=== PATIENT | male | born 1970 | race Caucasian/White ===

== ENCOUNTER 2019-02-24 18:24 | Emergency (ER) | payer OTHER ==
[2019-02-24 18:50] VITALS: RESP 18
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
--- NOTE | 2019-02-24 20:01 | XR ---
EXAMINATION TYPE: XR chest 2V DATE OF EXAM: 02/24/2019 COMPARISON: NONE HISTORY: Chest pain TECHNIQUE: Frontal and lateral views of the chest are obtained. FINDINGS: Heart and mediastinum are normal. Lungs are clear. Diaphragm is normal. Bony thorax appear s normal. IMPRESSION: Normal chest
--- NOTE | 2019-02-24 20:01 | XR ---
EXAMINATION TYPE: XR hand limited LT DATE OF EXAM: 02/24/2019 COMPARISON: NONE HISTORY: Hand pain TECHNIQUE: 2 views FINDINGS: Metacarpals are intact. I see no fracture nor dislocation. There are no erosions. Joint [facility] [place] are fairly normal. IMPRESSION: Negative left hand exam.
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
[2019-02-24 20:30] VITALS: BP 144/80; PULSE 70; TEMP 98
== END 2019-02-24 20:29 | disposition home or self-care (01) ==
LOC: EC 18:24
DX: M54.2 Cervicalgia (principal); R07.89 Other chest pain; M79.645 Pain in left finger(s); V43.52XA Car driver injured in collision with other type car in traffic accident, initial encounter; W22.11XA Striking against or struck by driver side automobile airbag, initial encounter; Y92.410 Unspecified street and highway as the place of occurrence of the external cause
CPT/HCPCS: 70450; 71046; 72125; 99284

== ENCOUNTER 2023-05-27 12:29 | Emergency (ER) | payer BC, OTHER ==
[2023-05-27 12:36] VITALS: PULSE 55; RESP 20; TEMP 98.4
[2023-05-27] MEDS ORDERED: ONDANSETRON 4 MG/2 ML VIAL IVP STA (12:39)
[2023-05-27] MEDS ORDERED: KETOROLAC 15 MG/ML 1 ML VIAL IVP STA (12:39)
[2023-05-27] MEDS ORDERED: SODIUM CHLORIDE 0.9% 1,000 ML IV STA (12:39)
[2023-05-27] MEDS ORDERED: MORPHINE SULFATE 4 MG/ML SYRINGE IVP STA (12:39)
--- NOTE | 2023-05-27 12:51 | ED ---
Abdominal Pain HPI - General Chief Complaint: Abdominal Pain Stated Complaint: poss Kidney Stone-N/V Time Seen by Provider: 05/27/23 12:39 Source: patient, RN notes reviewed, old records reviewed Mode of arrival: ambulatory Limitations: no limitations - History of Present Illness Initial Comments: This is a 52-year-old male to the emergency department for evaluation today. Patient comes in for evaluation of abdominal pain believes he does have kidney stone severe right-sided flank pain with history of kidney stones. Patient believes she has a kidney stone currently. Positive nausea no vomiting of travel show sick contacts or fevers no trauma MD Complaint: abdominal pain, flank pain -: days(s) Location: diffuse Radiation: none Severity: severe Severity scale (1-10): 10 Consistency: constant Improves With: nothing Worsens With: nothing Associated Symptoms: nausea - Related Data Home Medications Medication Instructions Recorded Confirmed Ibuprofen [Motrin] 600 mg PO TID PRN 05/27/23 05/27/23 Ondansetron Odt [Zofran ODT] 4 mg PO Q8HR PRN 05/27/23 05/27/23 Previous Rx's Medication Instructions Recorded Acetaminophen Tab [Tylenol] 650 mg PO Q6HR PRN tab 05/30/23 Allergies Allergy/AdvReac Type Severity Reaction Status Date / Time No Known Allergies Allergy Verified 05/27/23 19:25 Review of Systems ROS Statement: Those systems with pertinent positive or pertinent negative responses have been documented in the HPI. ROS Other: All systems not noted in ROS Statement are negative. Past Medical History Past Medical History: No Reported History Additional Past Medical History / Comment(s): kidney stones History of Any Multi-Drug Resistant Organisms: None Reported Past Surgical History: No Surgical Hx Reported Past Psychological History: No Psychological Hx Reported Smoking Status: Never smoker Past Alcohol Use History: None Reported Past Drug Use History: None Reported General Exam Limitations: no limitations General appearance: alert, in no apparent distress, anxious Head exam: Present: atraumatic, normocephalic, normal inspection Eye exam: Present: normal appearance, PERRL, EOMI. Absent: scleral icterus, conjunctival injection, periorbital swelling ENT exam: Present: normal exam, mucous membranes moist Neck exam: Present: normal inspection. Absent: tenderness, meningismus, lymphadenopathy Respiratory exam: Present: normal lung sounds bilaterally. Absent: respiratory distress, wheezes, rales, rhonchi, stridor Cardiovascular Exam: Present: normal rhythm, bradycardia, normal heart sounds. Absent: systolic murmur, diastolic murmur, rubs, gallop, clicks GI/Abdominal exam: Present: soft, normal bowel sounds. Absent: distended, tend erness, guarding, rebound, rigid Extremities exam: Present: normal inspection, full ROM, normal capillary refill. Absent: tenderness, pedal edema, joint swelling, calf tenderness Back exam: Present: normal inspection Neurological exam: Present: alert, oriented X3, CN II-XII intact Psychiatric exam: Present: normal affect, normal mood Skin exam: Present: warm, dry, intact, normal color. Absent: rash Course Vital Signs 05/27/23 05/27/23 12:33 15:19 Temperature 98.4 F Pulse Rate 55 L Respiratory 20 Rate Blood Pressure 166/106 146/96 O2 Sat by Pulse 98 Oximetry - Reevaluation(s) Reevaluation #1: 05/27/23 13:13 Medical records reviewed Reevaluation #2: Patient symptoms are improved, pain is controlled/ Reevaluation #3: Patient informed results and questions answered 20 Reevaluation #4: 05/27/23 12:54 Was pt. sent in by a medical professional or institution (, PA, TRUCK SERVICE TECHNICIAN, urgent care, hospital, or assisted...) When possible be specific @ -no Did you speak to anyone other than the patient for history (EMS, parent, family, police, friend...)? What history was obtained from this source @ -no Did you review nursing and triage notes (agree or disagree)? Why? @ -agree Are old charts reviewed (outside hosp., previous admission, EMS record, old EKG, old radiological studies, urgent care reports/EKG's, assisted records)? Report findings @ -yes Differential Diagnosis (chest pain, altered mental status, abdominal pain women, abdominal pain men, vaginal bleeding, weakness, fever, dyspnea, syncope, headache, dizziness, GI bleed, back pain, seizure, CVA, palpatations, mental health, musculoskeletal)? @ -prior EKG interpreted by me (3pts min.). @ -no X-rays interpreted by me (1pt min.). @ -no CT interpreted by me (1pt min.). @ -yes positive for kidney stone U/S interpreted by me (1pt. min.). @ -no What testing was considered but not performed or refused? (CT, X-rays, U/S, labs)? Why? @ -none What meds were considered but not given or refused? Why? @ -none Did you discuss the management of the patient with other professionals (professionals i.e. Dr., PA, TRUCK SERVICE TECHNICIAN, lab, RT, psych nurse, healthcare social worker, auditor, teacher, sewage reticulation drafting officer, caseworker intake)? Give summary @ -no Was smoking cessation discussed for >3mins.? @ -no Was critical care preformed (if so, how long)? @ -no Were there social determinants of health that impacted care today? How? (Homelessness, low income, unemployed, alcoholism, drug addiction, transportation, low edu. Level, literacy, decrease access to med. care, detention, rehab)? @ -none Was there de-escalation of care discussed even if they declined (Discuss DNR or withdrawal of care, Hospice)? DNR status @ -no What co-morbidities impacted this encounter? (DM, HTN, Smoking, COPD, CAD, Cancer, CVA, ARF, Chemo, Hep., AIDS, mental health diagnosis, sleep apnea, morbid obesity)? @ -none Was patient admitted / discharged? Hospital course, mention meds given and route, prescriptions, significant lab abnormalities, going to OR and other pertinent info. @ - 52 male to the emergency department today with severe abdominal pain secondary to kidney stone right-sided kidney stone. Patient has adequate pain control currently and can be discharged home Discharge Undiagnosed new problem with uncertain prognosis? @ -no Drug Therapy requiring intensive monitoring for toxicity (Heparin, Nitro, Insulin, Cardizem)? @ -no Were any procedures done? @ -no Diagnosis/symptom? @ -Right ureteral kidney stone with abdominal pain Acute, or Chronic, or Acute on Chronic? @ -Acute Uncomplicated (without systemic symptoms) or Complicated (systemic symptoms)? @ -Complicated Side effects of treatment? @ -no Exacerbation, Progression, or Severe Exacerbation? @ -exacerbation Poses a threat to life or bodily function? How? (Chest pain, USA, OR, pneumonia, PE, COPD, DKA, ARF, appy, cholecystitis, CVA, Diverticulitis, Homicidal, Suicidal, threat to staff... and all critical care pts) @ -no Reevaluation #5: 05/27/23 13:13 Differential Abdominal Pain Men: Appendicitis, cholecystitis, diverticulosis, ischemic bowel, pancreatitis, hepatitis, UTI, gastroenteritis, AAA, incarcerated hernia, bowel obstruction, constipation, inflammatory bowel, hepatitis, peptic ulcer disease, splenic infarction, perforated viscus, testicular torsion, this is not meant to be an all-inclusive list Medical Decision Making - Medical Decision Making 52 male to the emergency department today with severe abdominal pain secondary to kidney stone right-sided kidney stone. Patient has adequate pain control currently and can be discharged home - Lab Data Result diagrams: 05/27/23 13:07 05/27/23 13:07 Lab Results 05/27/23 05/27/23 Range/Units 13:07 13:07 WBC 11.5 H (3.8-10.6) k/uL RBC 5.63 (4.30-5.90) m/uL Hgb 17.6 H (13.0-17.5) gm/dL Hct 49.8 (39.0-53.0) % MCV 88.5 (80.0-100.0) fL MCH 31.2 (25.0-35.0) pg MCHC 35.3 (31.0-37.0) g/dL RDW 12.5 (11.5-15.5) % Plt Count 247 (150-450) k/uL MPV 7.9 Neutrophils % 84 % Lymphocytes % 9 % Monocytes % 5 % Eosinophils % 1 % Basophils % 0 % Neutrophils # 9.6 H (1.3-7.7) k/uL Lymphocytes # 1.0 (1.0-4.8) k/uL Monocytes # 0.6 (0-1.0) k/uL Eosinophils # 0.1 (0-0.7) k/uL Basophils # 0.0 (0-0.2) k/uL Sodium 140 (137-145) mmol/L Potassium 4.0 (3.5-5.1) mmol/L Chloride 104 (98-107) mmol/L Carbon Dioxide 20 L (22-30) mmol/L Anion Gap 16 mmol/L BUN 14 (9-20) mg/dL Creatinine 1.22 (0.66-1.25) mg/dL Est GFR (CKD-EPI)AfAm 80 (>60 ml/min/1.73 sqM) Est GFR (CKD-EPI)NonAf 69 (>60 ml/min/1.73 sqM) Glucose 102 H (74-99) mg/dL Calcium 9.3 (8.4-10.2) mg/dL Total Bilirubin 0.9 (0.2-1.3) mg/dL AST 23 (17-59) U/L ALT 32 (4-49) U/L Alkaline Phosphatase 90 (38-126) U/L Total Protein 7.9 (6.3-8.2) g/dL Albumin 4.4 (3.5-5.0) g/dL Amylase 58 (30-110) U/L Lipase 138 (23-300) U/L - Radiology Data Radiology results: report reviewed (CT Of the abdomen and pelvis is positive for kidney stone), image reviewed Disposition Clinical Impression: Right ureteral calculus, Kidney stone, Kidney stone on right side, Abdominal pain Disposition: HOME SELF-CARE Condition: Good Instructions (If sedation given, give patient instructions): Kidney Stones (ED) Is patient prescribed a controlled substance at d/c from ED?: No Referrals: Michael Gong MD [Primary Care Provider] - 1-2 days Aly Howell MD [STAFF PHYSICIAN] - 1-2 days Time of Disposition: 14:50
[2023-05-27 13:09] LABS: Basophils % (A) 0 %; Eosinophils # (A) 0.1 k/uL (0-0.7); Eosinophils % (A) 1 %; HCT 49.8 % (39.0-53.0); HGB 17.6 gm/dL (13.0-17.5); Lymphocytes % (A) 9 %; MCH 31.2 pg (25.0-35.0); MCHC 35.3 g/dL (31.0-37.0); MCV 88.5 fL (80.0-100.0); Mean Platelet Volume 7.9; Monocytes # (A) 0.6 k/uL (0-1.0); Monocytes % (A) 5 %; Neutrophils # (A) 9.6 k/uL (1.3-7.7); Neutrophils % (A) 84 %; Platelet Count 247 k/uL (150-450); RBC 5.63 m/uL (4.30-5.90); RDW 12.5 % (11.5-15.5); WBC 11.5 k/uL (3.8-10.6)
--- NOTE | 2023-05-27 13:34 | CT ---
EXAMINATION TYPE: CT abdomen pelvis wo con CT DLP: 978.7 mGycm, Automated exposure control for dose reduction was used. DATE OF EXAM: 05/27/2023 1:25 PM COMPARISON: None CLINICAL INDICATION:Male, 52 years old with history of abdominal pain; right flank pain TECHNIQUE: Axial CT of the ;CT abdomen pelvis wo con;Sagittal and coronal reformats were created on a separate workstation. Contrast used: mL of , (none if empty) Oral contrast used: without Oral Contrast (none if empty) FINDINGS: LOWER CHEST: Unremarkable ABDOMEN LIVER: Unremarkable GALLBLADDER AND BILE DUCTS: Unremarkable. PANCREAS: Unremarkable. SPLEEN: Unremarkable. ADRENAL GLANDS: Left adrenal myelolipoma measuring 2.9 cm. KIDNEYS AND URETERS: Mild right hydronephrosis secondary obstructing 10 mm kyphosis at the ureteropel luther junction. Nonobstructing left renal calculus measuring 4 mm. Extensive edema around the right kid lily. PELVIS BLADDER: Unremarkable REPRODUCTIVE: Prostate is enlarged in size measuring 5.3 cm in transverse dimension. ABDOMEN & PELVIS STOMACH AND BOWEL: No evidence of bowel obstruction. Colonic diverticula. The appendix is normal. PERITONEUM/RETROPERITONEUM: No evidence of pneumoperitoneum or free fluid. VASCULATURE: No evidence of aortic aneurysm. MUSCULOSKELETAL: No acute osseous abnormalities. Mild disc degeneration changes are present throughou t the thoracolumbar spine. LYMPH NODES: No gross evidence for lymphadenopathy. SOFT TISSUE/ABDOMINAL WALL: Fat-containing left inguinal hernia. IMPRESSION: 1. Mild right hydronephrosis secondary obstructing 10 mm kyphosis at the ureteropelvic junction. Akira yceal rupture is not excluded given extensive edema around the right kidney. 2. Left nonobstructing calculus. 3. Prostatomegaly, correlate with serum PSA. 4. Colonic diverticula. 5. Left adrenal myolipoma.
[2023-05-27 13:47] LABS: ALT 32 U/L (4-49); AST 23 U/L (17-59); African American GFR (CKD) 80 (>60 ml/min/1.73 sqM); Albumin 4.4 g/dL (3.5-5.0); Alkaline Phosphatase 90 U/L (38-126); Amylase 58 U/L (30-110); Anion Gap 16 mmol/L; Blood Urea Nitrogen 14 mg/dL (9-20); Calcium 9.3 mg/dL (8.4-10.2); Carbon Dioxide 20 mmol/L (22-30); Chloride 104 mmol/L (98-107); Glucose 102 mg/dL (74-99); Lipase 138 U/L (23-300); Non-African American GFR(CKD) 69 (>60 ml/min/1.73 sqM); Sodium 140 mmol/L (137-145); Total Bilirubin 0.9 mg/dL (0.2-1.3); Total Protein 7.9 g/dL (6.3-8.2)
[2023-05-27] MEDS ORDERED: TAMSULOSIN 0.4 MG CAP.ER.24H PO STA (14:35)
[2023-05-27] MEDS ORDERED: ONDANSETRON 4 MG ODT STARTER PACK 2 TAB BTL PO STA (14:51)
[2023-05-27] MEDS ORDERED: HYDROmorphone 1 MG/ML 1 ML SYRINGE IVP STA (14:51)
[2023-05-27] MEDS ORDERED: ACET/COD 300 MG/30 MG STARTER PACK 6 TAB BTL PO STA (14:51)
[2023-05-27] MEDS ORDERED: IBUPROFEN 600 MG STARTER PACK 4 TAB BTL PO STA (14:51)
[2023-05-27 15:41] VITALS: BP 146/96
== END 2023-05-27 15:20 | disposition home or self-care (01) ==
LOC: EC 12:29
DX: K57.30 Diverticulosis of large intestine without perforation or abscess without bleeding (principal); N20.2 Calculus of kidney with calculus of ureter
CPT/HCPCS: 36415; 80053; 82150; 83690; 85025; 74176; 99285; 96374; 96375 ×3; 96361; J2270; J2405; J1170; J1885; S0119

== ENCOUNTER 2023-05-27 18:40 | Inpatient (IN) | payer BC ==
[2023-05-27] MEDS ORDERED: MORPHINE SULFATE 4 MG/ML SYRINGE IVP STA (19:04)
[2023-05-27] MEDS ORDERED: KETOROLAC 15 MG/ML 1 ML VIAL IVP STA (19:04)
[2023-05-27] MEDS ORDERED: ONDANSETRON 4 MG/2 ML VIAL IVP STA (19:04)
[2023-05-27] MEDS ORDERED: SODIUM CHLORIDE 0.9% 1,000 ML IV STA ×2 (19:04)
--- NOTE | 2023-05-27 19:05 | ED ---
Abdominal Pain HPI - General Chief Complaint: Abdominal Pain Stated Complaint: Abd Pain - revisit Time Seen by Provider: 05/27/23 18:46 Source: patient, RN notes reviewed, old records reviewed Mode of arrival: ambulatory Limitations: no limitations - History of Present Illness Initial Comments: This is a 52-year-old male to the ER for evaluation reevaluation of kidney stone right-sided flank pain radiation to groin difficulty with urination. Patient does have known kidney stone right-sided milliliters, patient states he was at home and the pain became severe again, control pain presented back to the emergency department with fell outpatient treatment MD Complaint: abdominal pain, flank pain -: hour(s) Location: RLQ, suprapubic Radiation: suprapubic Severity: moderate, severe Severity scale (1-10): 4 Quality: sharp Consistency: constant Improves With: nothing Worsens With: nothing Associated Symptoms: nausea - Related Data Home Medications Medication Instructions Recorded Confirmed Ibuprofen [Motrin] 600 mg PO TID PRN 05/27/23 05/27/23 Ondansetron Odt [Zofran ODT] 4 mg PO Q8HR PRN 05/27/23 05/27/23 Previous Rx's Medication Instructions Recorded Acetaminophen Tab [Tylenol] 650 mg PO Q6HR PRN tab 05/30/23 Allergies Allergy/AdvReac Type Severity Reaction Status Date / Time No Known Allergies Allergy Verified 05/27/23 19:25 Review of Systems ROS Statement: Those systems with pertinent positive or pertinent negative responses have been documented in the HPI. ROS Other: All systems not noted in ROS Statement are negative. Past Medical History Past Medical History: No Reported History Additional Past Medical History / Comment(s): kidney stones History of Any Multi-Drug Resistant Organisms: None Reported Past Surgical History: No Surgical Hx Reported Past Psychological History: No Psychological Hx Reported Smoking Status: Never smoker Past Alcohol Use History: None Reported Past Drug Use History: None Reported General Exam Limitations: no limitations General appearance: alert, in no apparent distress, anxious Head exam: Present: atraumatic, normocephalic, normal inspection Eye exam: Present: normal appearance, PERRL, EOMI. Absent: scleral icterus, conjunctival injection, periorbital swelling ENT exam: Present: normal exam, mucous membranes moist Neck exam: Present: normal inspection. Absent: tenderness, meningismus, lymphadenopathy Respiratory exam: Present: normal lung sounds bilaterally. Absent: respiratory distress, wheezes, rales, rhonchi, stridor Cardiovascular Exam: Present: regular rate, normal rhythm, normal heart sounds. Absent: systolic murmur, diastolic murmur, rubs, gallop, clicks GI/Abdominal exam: Present: soft, normal bowel sounds. Absent: distended, tenderness, guarding, rebound, rigid Extremities exam: Present: normal inspection, full ROM, normal capillary refill. Absent: tenderness, pedal edema, joint swelling, calf tenderness Back exam: Present: normal inspection Neurological exam: Present: alert, oriented X3, CN II-XII intact Psychiatric exam: Present: normal affect, normal mood Skin exam: Present: warm, dry, intact, normal color. Absent: rash Course Vital Signs 05/27/23 05/27/23 18:43 22:09 Temperature 98.4 F Pulse Rate 65 50 L Respiratory 18 18 Rate Blood Pressure 126/86 140/91 O2 Sat by Pulse 99 98 Oximetry - Reevaluation(s) Reevaluation #1: 05/27/23 20:31 Record is reviewed Reevaluation #2: 05/27/23 20:31 Patient's pain is mildly improved Reevaluation #3: 05/27/23 20:31 Patient informed results and questions answered Reevaluation #4: 05/27/23 20:31 Was pt. sent in by a medical professional or institution ([facility] Miranda, REGISTRAR ASSISTANT, urgent care, hospital, or long-term...) When possible be specific @ -no Did you speak to anyone other than the patient for history (EMS, parent, family, police, friend...)? What history was obtained from this source @ -no Did you review nursing and triage notes (agree or disagree)? Why? @ -agree Are old charts reviewed (outside hosp., previous admission, EMS record, old EKG, old radiological studies, urgent care reports/EKG's, long-term records)? Report findings @ -yes Differential Diagnosis (chest pain, altered mental status, abdominal pain women, abdominal pain men, vaginal bleeding, weakness, fever, dyspnea, syncope, headache, dizziness, GI bleed, back pain, seizure, CVA, palpatations, mental he alth, musculoskeletal)? @ -prior EKG interpreted by me (3pts min.). @ -no X-rays interpreted by me (1pt min.). @ -no CT interpreted by me (1pt min.). @ -no U/S interpreted by me (1pt. min.). @ -no What testing was considered but not performed or refused? (CT, X-rays, U/S, labs)? Why? @ -none What meds were considered but not given or refused? Why? @ -none Did you discuss the management of the patient with other professionals (professionals i.e. , PA, REGISTRAR ASSISTANT, lab, RT, psych nurse, child protective services social worker, him clerk, teacher, unemployment insurance hearing officer, skilled nursing case manager)? Give summary @ -no Was smoking cessation discussed for >3mins.? @ -no Was critical care preformed (if so, how long)? @ -no Were there social determinants of health that impacted care today? How? (Homelessness, low income, unemployed, alcoholism, drug addiction, transportation, low edu. Level, literacy, decrease access to med. care, usp, re hab)? @ -none Was there de-escalation of care discussed even if they declined (Discuss DNR or withdrawal of care, Hospice)? DNR status @ -no What co-morbidities impacted this encounter? (DM, HTN, Smoking, COPD, CAD, Cancer, CVA, ARF, Chemo, Hep., AIDS, mental health diagnosis, sleep apnea, morbid obesity)? @ -none Was patient admitted / discharged? Hospital course, mention meds given and route, prescriptions, significant lab abnormalities, going to OR and other pertinent info. @ - 52 male to the emergency department for evaluation of abdominal pain kidney stone pain severe. Patient be admitted for urology to evaluate Admitted Undiagnosed new problem with uncertain prognosis? @ -no Drug Therapy requiring intensive monitoring for toxicity (Heparin, Nitro, Insulin, Cardizem)? @ -no Were any procedures done? @ -no Diagnosis/symptom? @ -Kidney stone with uncontrolled pain, failed outpatient treatment Acute, or Chronic, or Acute on Chronic? @ -Acute Uncomplicated (without systemic symptoms) or Complicated (systemic symptoms)? @ -Complicated Side effects of treatment? @ -no Exacerbation, Progression, or Severe Exacerbation? @ -exacerbation Poses a threat to life or bodily function? How? (Chest pain, [place], [place], pneumonia, PE, COPD, DKA, ARF, appy, cholecystitis, CVA, Diverticulitis, Homicidal, Suicidal, threat to staff... and all critical care pts) @ -no Medical Decision Making - Medical Decision Making 52 male to the emergency department for evaluation of abdominal pain kidney stone pain severe. Patient be admitted for urology to evaluate - Lab Data Result diagrams: 05/29/23 05:03 05/29/23 05:03 Lab Results 05/27/23 05/27/23 Range/Units 19:34 19:36 WBC 10.7 H (3.8-10.6) k/uL RBC 5.27 (4.30-5.90) m/uL Hgb 16.1 (13.0-17.5) gm/dL Hct 46.7 (39.0-53.0) % MCV 88.6 (80.0-100.0) fL MCH 30.5 (25.0-35.0) pg MCHC 34.4 (31.0-37.0) g/dL RDW 12.5 (11.5-15.5) % Plt Count 230 (150-450) k/uL MPV 8.0 Neutrophils % 80 % Lymphocytes % 12 % Monocytes % 6 % Eosinophils % 1 % Basophils % 0 % Neutrophils # 8.6 H (1.3-7.7) k/uL Lymphocytes # 1.3 (1.0-4.8) k/uL Monocytes # 0.6 (0-1.0) k/uL Eosinophils # 0.1 (0-0.7) k/uL Basophils # 0.0 (0-0.2) k/uL Sodium 137 (137-145) mmol/L Potassium 3.6 (3.5-5.1) mmol/L Chloride 103 (98-107) mmol/L Carbon Dioxide 22 (22-30) mmol/L Anion Gap 12 mmol/L BUN 13 (9-20) mg/dL Creatinine 1.23 (0.66-1.25) mg/dL Est GFR (CKD-EPI)AfAm 79 (>60 ml/min/1.73 sqM) Est GFR (CKD-EPI)NonAf 68 (>60 ml/min/1.73 sqM) Glucose 90 (74-99) mg/dL Calcium 8.9 (8.4-10.2) mg/dL Total Bilirubin 0.9 (0.2-1.3) mg/dL AST 20 (17-59) U/L ALT 28 (4-49) U/L Alkaline Phosphatase 87 (38-126) U/L Total Protein 7.2 (6.3-8.2) g/dL Albumin 4.1 (3.5-5.0) g/dL Amylase 57 (30-110) U/L Lipase 337 H (23-300) U/L Disposition Clinical Impression: Right ureteral calculus, Kidney stone, Kidney stone on right side, Abdominal pain Disposition: ADMITTED IP TO THIS [facility] Condition: Good Is patient prescribed a controlled substance at d/c from ED?: No Time of Disposition: 19:30
[2023-05-27] MEDS ORDERED: NALOXONE 0.4 MG/ML 1 ML VIAL IV PRN (20:11)
[2023-05-27] MEDS ORDERED: ONDANSETRON 4 MG/2 ML VIAL IVP PRN (20:18)
[2023-05-27 20:24] LABS: Basophils % (A) 0 %; Eosinophils # (A) 0.1 k/uL (0-0.7); Eosinophils % (A) 1 %; HCT 46.7 % (39.0-53.0); HGB 16.1 gm/dL (13.0-17.5); Lymphocytes # (A) 1.3 k/uL (1.0-4.8); Lymphocytes % (A) 12 %; MCH 30.5 pg (25.0-35.0); MCHC 34.4 g/dL (31.0-37.0); MCV 88.6 fL (80.0-100.0); Monocytes # (A) 0.6 k/uL (0-1.0); Monocytes % (A) 6 %; Neutrophils # (A) 8.6 k/uL (1.3-7.7); Neutrophils % (A) 80 %; Platelet Count 230 k/uL (150-450); RBC 5.27 m/uL (4.30-5.90); RDW 12.5 % (11.5-15.5); WBC 10.7 k/uL (3.8-10.6)
[2023-05-27 20:37] LABS: ALT 28 U/L (4-49); AST 20 U/L (17-59); African American GFR (CKD) 79 (>60 ml/min/1.73 sqM); Albumin 4.1 g/dL (3.5-5.0); Alkaline Phosphatase 87 U/L (38-126); Amylase 57 U/L (30-110); Anion Gap 12 mmol/L; Blood Urea Nitrogen 13 mg/dL (9-20); Calcium 8.9 mg/dL (8.4-10.2); Carbon Dioxide 22 mmol/L (22-30); Chloride 103 mmol/L (98-107); Glucose 90 mg/dL (74-99); Lipase 337 U/L (23-300); Non-African American GFR(CKD) 68 (>60 ml/min/1.73 sqM); Potassium 3.6 mmol/L (3.5-5.1); Sodium 137 mmol/L (137-145); Total Bilirubin 0.9 mg/dL (0.2-1.3); Total Protein 7.2 g/dL (6.3-8.2)
[2023-05-27] MEDS: SODIUM CHLORIDE 0.9% 1,000 ML IV SCH ×2 (21:04→23:15)
[2023-05-27 22:51] LABS: Appearance,Urine Clear (Clear); Bilirubin,Urine Negative (Negative); Blood,Urine Negative (Negative); Color,Urine Colorless; Glucose,Urine (UA) Negative (Negative); Ketones,Urine Negative (Negative); Leukocyte Esterase,Urine Negative (Negative); Nitrite,Urine Negative (Negative); PH, Urine 5.5 (5.0-8.0); Protein,Urine Negative (Negative); Specific Gravity,Urine 1.017 (1.001-1.035); Urobilinogen,Urine <2.0 mg/dL (<2.0)
[2023-05-27] MEDS: MORPHINE SULFATE 4 MG/ML SYRINGE IV PRN (23:15)
--- NOTE | 2023-05-28 02:26 | P.HPIM ---
History of Present Illness H&P Date: 05/27/23 Patient is a 52-year-old male with a PMH of recurrent nephrolithiasis who presented to the emergency room with complaints of right flank pain with nausea and vomiting. Patient reports his pain started around midnight 05/27, gradually worsened to a 10 out of 10, right flank and radiating to the groin, with associated nausea and 2 episodes of nonbloody nonbilious emesis, without associated dysuria, fever, or chills. He was seen at the emergency room earlier today where a CT abdomen and pelvis revealed right-sided 10 mm stone at the UP junction with hydronephrosis as well as a 4 mm nonobstructing left renal calculus. He was initially sent home but states that his pain worsened which prompted him to return to the emergency room. Patient reported that his pain had improved significantly and was rated at a 3 out of 10 at the time of interview. Reports having had multiple bouts of nephrolithiasis in the past 20 years with most recently 4 years ago. Has never been evaluated by urology. Patient also denied experiencing cough, chest discomfort, shortness of breath. In the emergency room laboratory evaluation was remarkable for leukocytosis of 10.7, lipase 337, with coronavirus PCR positive. ED documentation reviewed and case discussed with ED provider. Review of systems: Pertinent positives and negatives as discussed in HPI, a complete review of systems was performed and all other systems are negative. Physical examination: Vital signs reviewed General: non toxic, no distress, appears at stated age, normal weight Derm: no unusual rashes/lesions, warm Head: atraumatic, normocephalic, symmetric Eyes: EOMI, no lid lag, anicteric sclera, pupils equal round reactive to light ENT: Nose and ears atraumatic Neck: No cervical lymphadenopathy, trachea midline, supple Mouth: no lip lesion, mucus membranes moist Cardiovascular: S1S2 reg, no murmur, positive dorsalis pedis pulse bilateral, no edema Lungs: CTA bilateral, no rhonchi, no rales, no accessory muscle use Abdominal: soft, mild right CVA tenderness, no guarding, minimal suprapubic tenderness Ext: muscle strength 5 out of 5 in all 4 extremities grossly, no gross muscle atrophy, no contractures, Neuro: CN II-XI grossly intact, no gross focal neuro deficits Psych: Alert, oriented, appropriate affect Assessment: Right-sided nephrolithiasis with hydronephrosis Coronavirus PCR positive, asymptomatic Elevated lipase, suspect due to nausea and vomiting secondary to nephrolithiasis Imaging: CT abdomen and pelvis revealed right-sided 10 mm stone at the UP junction with hydronephrosis as well as a 4 mm nonobstructing left renal calculus. Data Review: In the emergency room laboratory evaluation was remarkable for leukocytosis of 10.7, lipase 337, with coronavirus PCR positive. Plan: Continue with IV fluids with normal saline 130 mL/h Strain urine Urology consulted Antiemetics Pain control with morphine DVT prophylaxis: Lovenox Subq The patient is admitted with an anticipated greater than 2 midnight stay for evaluation of nephrolithiasis CODE STATUS: Full Code Discussed with: Patient Anticipated discharge place: Home Past Medical History Past Medical History: No Reported History Additional Past Medical History / Comment(s): kidney stones History of Any Multi-Drug Resistant Organisms: None Reported Past Surgical History: No Surgical Hx Reported Past Anesthesia/Blood Transfusion Reactions: No Reported Reaction Past Psychological History: No Psychological Hx Reported Smoking Status: Never smoker Past Alcohol Use History: None Reported Past Drug Use History: None Reported Medications and Allergies Home Medications Medication Instructions Recorded Confirmed Type Acetaminophen-Codeine 300-30mg 1 tab PO Q8H PRN 05/27/23 05/27/23 History [Tylenol w/codeine #3] Ibuprofen [Motrin] 600 mg PO TID PRN 05/27/23 05/27/23 History Ondansetron Odt [Zofran Odt] 4 mg PO Q8HR PRN 05/27/23 05/27/23 History Allergies Allergy/AdvReac Type Severity Reaction Status Date / Time No Known Allergies Allergy Verified 05/27/23 19:25 Physical Exam Vitals: Vital Signs Temp Pulse Pulse Resp BP BP Pulse Ox 05/27/23 23:00 98.2 F 46 L 16 148/96 98 05/27/23 22:09 50 L 18 140/91 98 05/27/23 18:43 98.4 F 65 18 126/86 99 Intake and Output 05/27/23 05/27/23 05/28/23 14:59 22:59 06:59 Other: Weight 111.13 kg Results CBC & Chem 7: 05/27/23 19:36 05/27/23 19:34 Labs: Abnormal Lab Results - Last 24 Hours (Table) 05/27/23 05/27/23 05/27/23 Range/Units 19:34 19:36 20:42 WBC 10.7 H (3.8-10.6) k/uL Neutrophils # 8.6 H (1.3-7.7) k/uL Lipase 337 H (23-300) U/L SARS-CoV-2 (PCR) Detected A (Not Detectd)
[2023-05-28] MEDS: MORPHINE SULFATE 4 MG/ML SYRINGE IV PRN ×3 (03:27→17:06)
[2023-05-28] MEDS: SODIUM CHLORIDE 0.9% 1,000 ML IV SCH ×3 (03:28→16:44)
--- NOTE | 2023-05-28 07:10 | XR ---
EXAMINATION TYPE: XR KUB DATE OF EXAM: 05/27/2023 COMPARISON: 05/27/2023 HISTORY: Hematuria TECHNIQUE: One view abdominal series FINDINGS: The osseous structures are intact. The bowel gas pattern is nonspecific. There is a calcification ad jacent to the right transverse process of L3. Calcifications in the pelvis are likely vascular. There is arthropathy of the hips.. IMPRESSION: 1. 8 mm calcification adjacent to the right transverse process3 compatible with ureteral calculus.
[2023-05-28] MEDS: ENOXAPARIN 40 MG/0.4 ML SYRINGE SQ SCH (09:02)
--- NOTE | 2023-05-28 16:58 | P.PN ---
Subjective Progress Note Date: 05/28/23 Hospital course: Patient is a very pleasant 52-year-old male with a past medical history of recurrent nephrolithiasis who presented to the emergency room with complaints of right flank pain with nausea and vomiting. He underwent full evaluation in the emergency department. Vital signs showing blood pressure 126/86, heart rate 65, respiratory rate 18, temp 98.4F, SpO2 99% on room air. Labs completed and reviewed. CBC showing mild leukocytosis with WBC count of 10.7. BMP unrem arkable. Liver profile unremarkable. Lipase slightly elevated at 337. Urinalysis was negative for blood, ketones, or infection. Covid PCR was positive. CT abdomen and pelvis completed earlier that day revealed mild right hydronephrosis secondary to obstructing 10 mm kyphosis at the ureteropelvic junction with calyceal rupture not excluded given extensive edema around the right kidney, left nonobstructive calculi, left adrenal myolipoma, and prostatomegaly. Patient was admitted under our services with consultation to urology. Urology evaluated, planning to take patient for URS with holmium laser, stone basketing and stent placement tomorrow morning. KUB revealing an 8 mm calcification adjacent to the right transverse process compatible with ureteral calculus Physical exam: Patient seen and fully evaluated at bedside this morning. He reports pain is currently being managed with current pain medication regimen and denies having any other needs. Patient denies any further episodes of nausea or vomiting. He remains asymptomatic to Covid 19 complaints. Vital signs reviewed and stable. General: Nontoxic, no distress and appears stated age. Derm: Skin warm and dry, normal coloration for ethnicity. Head: Atraumatic, normocephalic and symmetric. Eyes: EOMs intact, no lid lag, and anicteric sclera Mouth: no lip lesions, mucus membranes moist Cardiovascular: regular rate and rhythm with normal S1S2, no murmur, positive posterior tibial pulses bilaterally, and cap refill < 2 seconds. Lungs: Respirations even, regular, and unlabored on room air. Lungs CTA bilaterally, no rhonchi, no rales, no wheezing, and no accessory muscle usage. Abdominal: soft, nontender to palpation, no guarding, no appreciable organomegaly Ext: ROM intact. No gross muscle atrophy, no edema, no contractures Neuro: Speech clear, face symmetrical and CN II-XII grossly intact with no noted focal neuro deficits Psych: Alert and oriented to person, place, time, and situation. Appropriate and pleasant affect. Assessment and Plan of Care: Right-sided nephrolithiasis with hydronephrosis Coronavirus PCR positive, asymptomatic Elevated lipase, suspect due to nausea and vomiting secondary to nephrolithiasis -Urology following, planning to take patient for right URS with holmium laser, s tone basketing and stent placement tomorrow morning. -Continue gentle IV fluid hydration with 0.9% normal saline at 130 miles per hour. -Symptomatic care and pain management with Zofran 4 mg IVP every 8 hours as needed for nausea and vomiting and morphine 4 mg IVP every 4 hours as needed for pain. -DVT prophylaxis with Lovenox. -Strain urine for calculus Coronavirus PCR positive, patient asymptomatic at this time -Droplet plus contact precautions. -Symptomatic care and pain management as needed. Prostatomegaly, incidental finding on CT -Recommend outpatient follow-up including PSA Data reviewed: Reviewed KUB completed this morning, KUB revealing an 8 mm calcification adjacent to the right transverse process compatible with ureteral calculus. Vital signs reviewed. Blood pressure 137/83, heart rate 62, respiratory rate 19, temp 97.7F, SpO2 of 95% on room air. CODE STATUS: Full code DVT prophylaxis: Lovenox Anticipated discharge date: Clinical course to determine Anticipated discharge place: Home Patient was seen independently by Nurse Pracitioner. This document was prepared using [employer] dictation software. Please allow for errors in city detective, while rare they do occur. Rolf Beltran NP rendered care for this patient independently, reviewed the findings and plan as documented in the note above. I did not physically speak with or examine the patient on this date. Objective - Vital Signs Vital signs: Vital Signs Temp 98.2 F 05/27/23 23:00 Pulse 46 L 05/27/23 23:00 Resp 16 05/27/23 23:00 BP 148/96 05/27/23 23:00 Pulse Ox 98 05/27/23 23:00 FiO2 Intake & Output 05/27/23 05/28/23 05/28/23 18:59 06:59 18:59 Intake Total 600 Balance 600 Weight 111.13 kg 111.13 kg Intake: Intake, IV Titration 600 Amount Sodium Chloride 0.9% 1, 260 000 ml @ 130 mls/hr IV . [id number] [facility] Rx#:[id number] Sodium Chloride 0.9% 1, 340 000 ml @ 75 mls/hr IV . [id number] [facility] Rx#:[id number] Other: # Voids 2 - Labs CBC & Chem 7: 05/27/23 19:36 05/27/23 19:34 Labs: Abnormal Lab Results - Last 24 Hours (Table) 05/27/23 05/27/23 05/27/23 Range/Units 19:34 19:36 20:42 WBC 10.7 H (3.8-10.6) k/uL Neutrophils # 8.6 H (1.3-7.7) k/uL Lipase 337 H (23-300) U/L SARS-CoV-2 (PCR) Detected A (Not Detectd)
[2023-05-28] MEDS: ACETAMINOPHEN TAB 325 MG TAB PO PRN (22:05)
--- NOTE | 2023-05-28 22:23 | P.GSCN ---
History of Present Illness Consult date: 05/28/23 Reason for Consult: right ureteral stone History of present illness: This is a 52 yo male admitted to the hospital with intractable pain secondary to right sided urteral stone. He has had two ED presentation secondary to pain. in the ER her underwent a CT abdomen the showed evidence of with of 1 cm right sided proximal ureteral stone. He is been expierencing right sided flank pain associated with nausea/vomiting. Denies any dysuria, fever or chills. Does have hx of kidney stones in the past, but has no required any surgical intervention for his kidney stones Review of Systems - Constitutional Denies fever, Denies weight loss - Cardiovascular Denies chest pain, Denies shortness of breath - Gastrointestinal Reports abdominal pain, Reports nausea, Reports vomiting - Genitourinary Reports flank pain, Reports kidney stones, Denies dysuria - Hematologic/Lymphatic Denies easy bleeding, Denies easy bruising Past Medical History Past Medical History: No Reported History Additional Past Medical History / Comment(s): kidney stones History of Any Multi-Drug Resistant Organisms: None Reported Past Surgical History: No Surgical Hx Reported Past Anesthesia/Blood Transfusion Reactions: No Reported Reaction Past Psychological History: No Psychological Hx Reported Smoking Status: Never smoker Past Alcohol Use History: None Reported Past Drug Use History: None Reported Medications and Allergies Home Medications Medication Instructions Recorded Confirmed Type Acetaminophen-Codeine 300-30mg 1 tab PO Q8H PRN 05/27/23 05/27/23 History [Tylenol w/codeine #3] Ibuprofen [Motrin] 600 mg PO TID PRN 05/27/23 05/27/23 History Ondansetron Odt [Zofran Odt] 4 mg PO Q8HR PRN 05/27/23 05/27/23 History Allergies Allergy/AdvReac Type Severity Reaction Status Date / Time No Known Allergies Allergy Verified 05/27/23 19:25 Surgical - Exam Vital Signs Temp Pulse Resp BP Pulse Ox 98.4 F 65 18 126/86 99 05/27/23 18:43 05/27/23 18:43 05/27/23 18:43 05/27/23 18:43 05/27/23 18:43 - General no distress, moderate pain - Eyes normal ocular movement, no pale - ENT normal nares, normal mucosa - Respiratory normal expansion, normal respiratory effort - Abdomen Abdomen: soft, tender (right flank ) - Psychiatric oriented to time, oriented to person, oriented to place Results - Labs 05/27/23 19:36 05/27/23 19:34 - Imaging CT scan - abdomen: image reviewed (1 cm right sided proximal ureteral stone with hydronephrosis) Assessment and Plan Assessment: 52 yo male with 1 cm right sided proximal stone having intractable pain secondary to stone. discussed option of right sided URS with holmium laser and stent. Risk, benefit and rationale was discussed in details -OR for right sided URS with holmium laser stone basketting and stent placement
[2023-05-29] MEDS: SODIUM CHLORIDE 0.9% 1,000 ML IV SCH ×3 (00:30→20:29)
[2023-05-29 08:28] LABS: HCT 40.5 % (39.6-50.0); HGB 13.8 g/dL (13.0-17.0); MCH 30.1 pg (27.0-32.0); MCHC 34.1 g/dL (32.0-37.0); MCV 88.2 FL (80.0-97.0); NRBC Per 100 WBC 0 X 10*3/uL (0.00-0.01); Platelet Count 201 X 10*3/uL (140-440); RBC 4.59 X 10*6/uL (4.40-5.60); RDW 12.4 % (11.5-14.5); WBC 5.25 X 10*3/uL (4.50-10.00)
[2023-05-29] MEDS: ENOXAPARIN 40 MG/0.4 ML SYRINGE SQ SCH (08:42)
[2023-05-29 09:16] LABS: ALT 19 U/L (10-49); AST 9 U/L (14-35); Albumin 3.5 g/dL (3.8-4.9); Albumin/Globulin Ratio 1.52 Ratio (1.60-3.17); Alkaline Phosphatase 72 U/L (41-126); Blood Urea Nitrogen 8.7 mg/dL (9.0-27.0); Calcium 8.5 mg/dL (8.7-10.3); Carbon Dioxide 23.5 mmol/L (21.6-31.8); Chloride 108 mmol/L (96-109); Globulin 2.3 g/dL (1.6-3.3); Glucose 78 mg/dL (70-110); Magnesium 1.9 mg/dL (1.5-2.4); Potassium 3.7 mmol/L (3.5-5.5); Sodium 142 mmol/L (135-145); Total Bilirubin 0.5 mg/dL (0.3-1.2); Total Protein 5.8 g/dL (6.2-8.2)
[2023-05-29] MEDS: MORPHINE SULFATE 4 MG/ML SYRINGE IV PRN (11:04)
[2023-05-29] MEDS ORDERED: LIDOCAINE 1% INJ 10MG/ML (20 ML MDV) ONE (14:04)
[2023-05-29] MEDS ORDERED: PROPOFOL 10 MG/ML 20 ML VIAL IV ONE (14:04)
[2023-05-29] MEDS ORDERED: IV FLUID CONTINUATION 1,000 ML IV ONE (14:04)
[2023-05-29] MEDS ORDERED: KETOROLAC 30 MG/ML 1 ML VIAL ONE (14:04)
[2023-05-29] MEDS ORDERED: SUCCINYLCHOLINE CHLORIDE 200 MG/10 ML VIAL IV ONE (14:04)
[2023-05-29] MEDS ORDERED: fentaNYL (PF) 50 MCG/ML 2 ML AMP ONE (14:04)
[2023-05-29] MEDS ORDERED: MIDAZOLAM 2 MG/2 ML VIAL ONE (14:04)
[2023-05-29] MEDS ORDERED: DEXAMETHASONE SOD PHOSPHATE 10 MG/ML 1 ML VIAL ONE (14:04)
[2023-05-29] MEDS ORDERED: HYDROmorphone (PF) 1 MG/ML ONE (14:04)
[2023-05-29] MEDS ORDERED: GLYCOPYRROLATE 0.2 MG/ML 2 ML VIAL ONE (14:04)
[2023-05-29] MEDS ORDERED: ONDANSETRON 4 MG/2 ML VIAL ONE (14:04)
[2023-05-29] MEDS ORDERED: ROCURONIUM 10 MG/ML (5 ML VIAL) IV ONE (14:04)
--- NOTE | 2023-05-29 15:19 | P.PN ---
Subjective Progress Note Date: 05/29/23 Hospital course: Patient is a very pleasant 52-year-old male with a past medical history of recurrent nephrolithiasis who presented to the emergency room with complaints of right flank pain with nausea and vomiting. He underwent full evaluation in the emergency department. Vital signs showing blood pressure 126/86, heart rate 65, respiratory rate 18, temp 98.4F, SpO2 99% on room air. Labs completed and reviewed. CBC showing mild leukocytosis with WBC count of 10.7. BMP unrem arkable. Liver profile unremarkable. Lipase slightly elevated at 337. Urinalysis was negative for blood, ketones, or infection. Covid PCR was positive. CT abdomen and pelvis completed earlier that day revealed mild right hydronephrosis secondary to obstructing 10 mm kyphosis at the ureteropelvic junction with calyceal rupture not excluded given extensive edema around the right kidney, left nonobstructive calculi, left adrenal myolipoma, and prostatomegaly. Patient was admitted under our services with consultation to urology. KUB revealing an 8 mm calcification adjacent to the right transverse process compatible with ureteral calculus Urology evaluated, planning to take patient for URS with holmium laser, stone basketing and stent placement. Physical exam: Patient seen and fully evaluated at bedside this morning. He reports pain is currently exacerbated and reports feeling uncomfortable. At this time. Patient awaiting to go down for surgical procedure. He continues to deny having any signs/symptoms of respiratory infection or Covid infection. Vital signs reviewed and stable. General: Nontoxic, no distress and appears stated age. Derm: Skin warm and dry, normal coloration for ethnicity. Head: Atraumatic, normocephalic and symmetric. Eyes: EOMs intact, no lid lag, and anicteric sclera Mouth: no lip lesions, mucus membranes moist Cardiovascular: regular rate and rhythm with normal S1S2, no murmur, positive posterior tibial pulses bilaterally, and cap refill < 2 seconds. Lungs: Respirations even, regular, and unlabored on room air. Lungs CTA bilaterally, no rhonchi, no rales, no wheezing, and no accessory muscle usage. Abdominal: soft, nontender to palpation, no guarding, no appreciable organomegaly Ext: ROM intact. No gross muscle atrophy, no edema, no contractures Neuro: Speech clear, face symmetrical and CN II-XII grossly intact with no noted focal neuro deficits Psych: Alert and oriented to person, place, time, and situation. Appropriate and pleasant affect. Assessment and Plan of Care: Right-sided nephrolithiasis with hydronephrosis Coronavirus PCR positive, asymptomatic Elevated lipase, suspect due to nausea and vomiting secondary to nephrolithiasis -Urology following, planning to take patient for right URS with holmium laser, stone basketing and stent placement later today. -Continue gentle IV fluid hydration with 0.9% normal saline at 130 miles per hour. May discontinue after surgery is complete. -Symptomatic care and pain management with Zofran 4 mg IVP every 8 hours as needed for nausea and vomiting and morphine 4 mg IVP every 4 hours as needed for pain. -DVT prophylaxis with Lovenox. -Strain urine for calculus Coronavirus PCR positive, patient asymptomatic at this time -Droplet plus contact precautions. -Symptomatic care and pain management as needed. Prostatomegaly, incidental finding on CT -Recommend outpatient follow-up including PSA Asymptomatic bradycardia Data reviewed: CBC and BMP were unremarkable. Magnesium normal findings at 1.9. Vital signs reviewed. Blood pressure 139/83, heart rate 43, respiratory rate 18, temp 98.2F, SpO2 of 94% on room air. CODE STATUS: Full code DVT prophylaxis: Lovenox Anticipated discharge date: Clinical course to determine Anticipated discharge place: Home Patient was seen independently by Nurse Pracitioner. This document was prepared using [employer] dictation software. Please allow for errors in prime minister, while rare they do occur. Rolf Beltran NP rendered care for this patient independently, reviewed the findings and plan as documented in the note above. I did not physically speak with or examine the patient on this date. Objective - Vital Signs Vital signs: Vital Signs Temp 98.2 F 05/29/23 07:08 Pulse 43 L 05/29/23 07:08 Resp 18 05/29/23 07:08 BP 139/83 05/29/23 07:08 Pulse Ox 94 L 05/29/23 07:08 FiO2 Intake & Output 05/28/23 05/29/23 05/29/23 18:59 06:59 18:59 Intake Total 180 Balance 180 Intake: Oral 180 Other: # Voids 1 2 - Labs CBC & Chem 7: 05/29/23 05:03 05/29/23 05:03
--- NOTE | 2023-05-29 15:22 | P.OP ---
Date of Procedure: 05/29/23 Preoperative Diagnosis: Right ureteral stone Postoperative Diagnosis: Same Procedure(s) Performed: Cystoscopy, right ureteroscopy, holmium laser lithotripsy, stone basketing and stent insertion Implants: 6-[place] by 28 cm stent in the right ureter left on a string Anesthesia: JAKE Surgeon: Aly Howell Estimated Blood Loss (ml): 5 Pathology: other (right ureteral stone) Condition: stable Disposition: PACU Indications for Procedure: 52 yo male with 1 cm right sided proximal stone having intractable pain secondary to stone. discussed option of right sided URS with holmium laser and stent. Risk, benefit and rationale was discussed in details Operative Findings: Large right-sided proximal stone Description of Procedure: Patient brought to the operating room, general anesthesia was induced. He was prepped and draped in sterile fashion and placed in dorsal lithotomy position. Cystoscopy fitted with a 21-[place] sheath was inserted per urethra, cystoscopy was performed which showed no abnormality within the bladder. Attention was then carried to the right ureteral orifice, the right ureteral orifice was intubated with a sensor wire, the wire was advanced under fluoroscopy into the proximal ureter. Next a 1113 [place] access sheath was passed over the wire and into the proximal ureter, just distal to the stone. Next a flexible ureteroscope was inserted through the access sheath, using the holmium laser the stone was fragmented, sizable stone fragments were removed using the stone basket. Repeat ureteroscopy and renoscopy was performed which showed no sizable fragments or injury to the kidney or the ureter. Pullback ureteroscopy was performed which showed no injury to the ureter or any ureteral stones, as ureteroscope was withdrawn and a sensor wire was advanced through. Next a ureteral stent was passed over the wire, the proximal curl was visualized on fluoroscopy and the distal curl was was visualized using the cystoscope. The bladder was emptied at the end of the case. The string was taped to the patient penis. Patient tolerated the procedure was taken to recovery in stable condition
--- NOTE | 2023-05-29 15:54 | FL ---
EXAMINATION TYPE: FL guidance operating room DATE OF EXAM: 05/29/2023 HISTORY: Fluoroscopy time Total dose area product (DAP) in uGy*m?, mGy*cm? (or similar): 0.05389 IMPRESSION: 1. Fluoroscopy time.
[2023-05-29] MEDS ORDERED: fentaNYL (PF) 50 MCG/ML 2 ML AMP IV PRN (16:47)
[2023-05-29] MEDS ORDERED: MIDAZOLAM 2 MG/2 ML VIAL IV PRN (16:47)
[2023-05-29] MEDS ORDERED: DEXAMETHASONE SOD PHOSPHATE 4 MG/ML 1 ML VIAL IV ONE (16:47)
[2023-05-29] MEDS ORDERED: LIDOCAINE 1% (10MG/ML) FOR IV START INTRADERMA PRN (16:47)
[2023-05-29] MEDS ORDERED: LACTATED RINGERS 1,000 ML IV SCH (16:47)
[2023-05-29] MEDS ORDERED: HYDROmorphone 0.5 MG/0.5 ML SYRINGE IVP PRN (16:47)
[2023-05-29] MEDS ORDERED: ONDANSETRON 4 MG/2 ML VIAL IVP ONE (16:47)
[2023-05-29] MEDS: ACETAMINOPHEN TAB 325 MG TAB PO PRN (20:27)
[2023-05-29] MEDS ORDERED: METOPROLOL TARTRATE 25 MG TAB PO STA (21:15)
[2023-05-30] MEDS: SODIUM CHLORIDE 0.9% 1,000 ML IV SCH (00:31)
[2023-05-30 08:55] VITALS: RESP 17
--- NOTE | 2023-05-30 09:05 | P.PN ---
Subjective Progress Note Date: 05/30/23 Principal diagnosis: Right ureteral calculus The patient underwent ureteroscopic removal of his right ureteral calculus yesterday. He is feeling well this morning. He reports mild hematuria and was reassured that this is normal. Objective - Vital Signs Vital signs: Vital Signs Temp 98.4 F 05/30/23 07:08 Pulse 87 05/30/23 07:08 Resp 17 05/30/23 07:08 BP 138/86 05/30/23 07:08 Pulse Ox 95 05/30/23 07:08 FiO2 Intake & Output 05/29/23 05/30/23 05/30/23 18:59 06:59 18:59 Other: Voiding Method Toilet Toilet # Voids 6 3 - Constitutional General appearance: Present: average body habitus, no acute distress - Psychiatric Psychiatric: Present: A&O x's 3 - Labs CBC & Chem 7: 05/29/23 05:03 05/29/23 05:03 Labs: Abnormal Lab Results - Last 24 Hours (Table) 05/29/23 Range/Units 05:03 BUN 8.7 L (9.0-27.0) mg/dL BUN/Creatinine Ratio 8.70 L (12.00-20.00) Ratio Calcium 8.5 L (8.7-10.3) mg/dL AST 9 L (14-35) U/L Total Protein 5.8 L (6.2-8.2) g/dL Albumin 3.5 L (3.8-4.9) g/dL Albumin/Globulin Ratio 1.52 L (1.60-3.17) Ratio Assessment and Plan (1) Right ureteral calculus Current Visit: Yes Status: Acute Code(s): N20.1 - CALCULUS OF URETER SNOMED Code(s): 03147005 Plan: Patient is urologically stable for discharge. He will follow up with Dr. Howell 1-2 weeks for removal of his right ureteral stent.
--- NOTE | 2023-05-30 09:10 | P.CRDCN ---
History of Present Illness History of present illness: HISTORY OF PRESENT ILLNESS: This is a 52-year-old male with a past medical history significant for kidney stones and nicotine dependence (patient chews tobacco). Patient does not follow with a signal tester. We have been asked to see the patient in consultation for S VT. Patient examined at the bedside. Patient presented to the hospital with a chief complaint of right-sided flank pain and difficulty with urination. The patient states he knew he had a kidney stone but the pain persisted so he decided to come to the emergency room for further evaluation. He underwent cystoscopy, right ureteroscopy, laser lithotripsy and stone basketing with stent insertion yesterday with urology. Patient states he is feeling better this morning. The patient also had an episode of SVT yesterday evening. The patient denied having any palpitations at that time. He denied any chest pain or pressure. He denied any shortness of breath. The patient was also noted to have some bradycardia this morning with a heart rate in the 30s40s. At the time of examination, the patients heart rate is in the 50s to 60s. He was also found to be positive for Covid. The patient denies any signs or symptoms of Covid at this time. * EKG reveals sinus bradycardia with right bundle branch block. No signs of acute ischemia. Repeat EKG reveals SVT. * Laboratory data: WBC 5.25. Hemoglobin 13.8. Platelet count 201. Sodium 142. Potassium 3.7. Magnesium 1.9. Lactic acid 2.0. * Current home cardiac medications include none REVIEW OF SYSTEMS: At the time of my exam: CONSTITUTIONAL: Denies fever or chills. HEENT: Denies blurred vision, vision changes, or eye pain. Denies hemoptysis CARDIOVASCULAR: Denies chest pain. Denies orthopnea. Denies PND. Denies palpitations RESPIRATORY: Denies shortness of breath. GASTROINTESTINAL: Denies abdominal pain. Denies nausea or vomiting. HEMATOLOGIC: Denies bleeding disorders. GENITOURINARY: Denies any blood in urine. SKIN: Denies pruitis. Denies rash. PHYSICAL EXAM: VITAL SIGNS: Reviewed. GENERAL: Well-developed in no acute distress. HEENT: Head is normocephalic. Pupils are equal, round. Sclerae anicteric. Mucous membranes of the mouth are moist. Neck supple. No JVD or thyromegaly LUNGS: Respirations even and unlabored. Lungs essentially clear to auscultation bilaterally. HEART: Regular rate and rhythm. S1 and S2 heard. ABDOMEN: Soft. Nondistended. Nontender. EXTREMITIES: Normal range of motion. No clubbing or cyanosis. Peripheral pulses intact. No lower extremity edema NEUROLOGIC: Awake and alert. Oriented x 3. ASSESSMENT: Right flank pain with difficulty urinating Right ureteral stone, status post cystoscopy, right ureteroscopy, laser lithotripsy and stone basketing with stent insertion Paroxysmal SVT Sinus bradycardia with right bundle branch block Acute Covid 19, asymptomatic Nicotine dependence, patient chews tobacco PLAN: Obtain 2-D echo to assess cardiac structure and function Check TSH Continue telemetry monitoring Patients heart rate is currently in the 50s to 60s with a dip this morning into the 30s. He is asymptomatic. Episode of SVT may be related to Covid. Further recommendations pending patient course Nurse practitioner note has been reviewed by physician. Signing provider agrees with the documented findings, assessment, and plan of care. Past Medical History Past Medical History: No Reported History Additional Past Medical History / Comment(s): kidney stones History of Any Multi-Drug Resistant Organisms: None Reported Past Surgical History: No Surgical Hx Reported Past Anesthesia/Blood Transfusion Reactions: No Reported Reaction Past Psychological History: No Psychological Hx Reported Smoking Status: Never smoker Past Alcohol Use History: None Reported Past Drug Use History: None Reported Medications and Allergies Home Medications Medication Instructions Recorded Confirmed Type Acetaminophen-Codeine 300-30mg 1 tab PO Q8H PRN 05/27/23 05/27/23 History [Tylenol w/codeine #3] Ibuprofen [Motrin] 600 mg PO TID PRN 05/27/23 05/27/23 History Ondansetron Odt [Zofran Odt] 4 mg PO Q8HR PRN 05/27/23 05/27/23 History Allergies Allergy/AdvReac Type Severity Reaction Status Date / Time No Known Allergies Allergy Verified 05/27/23 19:25 Physical Exam Vitals: Vital Signs Temp Pulse Pulse Resp BP BP BP 05/30/23 07:08 98.4 F 87 17 138/86 05/30/23 00:26 98.9 F 64 18 132/83 05/29/23 21:20 84 134/93 05/29/23 21:05 99.2 F 140 H 17 140/89 12/19/23 19:45 140 H 05/29/23 19:41 154 H 96/79 05/29/23 19:16 98.3 F 140 H 20 140/89 05/29/23 18:00 48 L 156/98 05/29/23 17:45 39 L 155/92 05/29/23 17:30 48 L 171/105 05/29/23 17:15 40 L 149/94 05/29/23 17:00 39 L 173/96 05/29/23 16:45 37 L 152/91 05/29/23 16:30 49 L 168/100 05/29/23 16:15 47 L 164/98 05/29/23 15:58 97.7 F 50 L 16 154/102 05/29/23 13:35 98.2 F 50 L 18 161/96 05/29/23 09:14 50 L 143/79 Pulse Ox 05/30/23 07:08 95 05/30/23 00:26 95 05/29/23 21:20 94 L 05/29/23 21:05 93 L 05/29/23 19:45 05/29/23 19:41 96 05/29/23 19:16 98 05/29/23 18:00 05/29/23 17:45 05/29/23 17:30 05/29/23 17:15 05/29/23 17:00 95 05/29/23 16:45 05/29/23 16:30 05/29/23 16:15 05/29/23 15:58 95 05/29/23 13:35 99 05/29/23 09:14 97 Intake and Output 05/29/23 05/30/23 05/30/23 22:59 06:59 14:59 Other: Voiding Method Toilet # Voids 6 3 Results 05/29/23 05:03 05/29/23 05:03 Cardiac Enzymes 05/29/23 Range/Units 05:03 AST 9 L (14-35) U/L Comprehensive Metabolic Panel 05/29/23 Range/Units 05:03 Sodium 142 (135-145) mmol/L Potassium 3.7 (3.5-5.5) mmol/L Chloride 108 (96-109) mmol/L Carbon Dioxide 23.5 (21.6-31.8) mmol/L BUN 8.7 L (9.0-27.0) mg/dL Creatinine 1.0 (0.6-1.5) mg/dL Glucose 78 (70-110) mg/dL Calcium 8.5 L (8.7-10.3) mg/dL AST 9 L (14-35) U/L ALT 19 (10-49) U/L Alkaline Phosphatase 72 (41-126) U/L Total Protein 5.8 L (6.2-8.2) g/dL Albumin 3.5 L (3.8-4.9) g/dL Current Medications Generic Name Dose Route Start Last Admin Trade Name Freq PRN Reason Stop Dose Admin Acetaminophen 650 mg 05/28/23 21:41 05/29/23 20:27 Acetaminophen Tab 325 Mg Tab PO 650 mg Q6HR PRN Administration Fever and/ or Pain Enoxaparin Sodium 40 mg 05/28/23 09:00 05/29/23 08:42 Enoxaparin 40 Mg/0.4 Ml Syringe SQ Not Given DAILY [facility] Fentanyl Citrate 50 mcg 05/29/23 16:47 Fentanyl (Pf) 50 Mcg/Ml 2 Ml Amp IV 05/30/23 16:48 Q3M PRN Phase I - Pain Control Hydromorphone HCl 0.5 mg 05/29/23 16:47 Hydromorphone 0.5 Mg/0.5 Ml Syringe IVP 05/30/23 16:48 Q5M PRN Phase 1 or 2 - Pain Control Lidocaine HCl 0.1 ml 05/29/23 16:47 Lidocaine 1% (10mg/Ml) For Iv Start INTRADERMA PER PROTOCOL PRN IV Start Midazolam HCl 2 mg 05/29/23 16:47 Midazolam 2 Mg/2 Ml Vial IV 05/30/23 16:48 ONCE PRN Pre-Op Anxiety Morphine Sulfate 4 mg 05/27/23 19:04 05/29/23 11:04 Morphine Sulfate 4 Mg/Ml Syringe IV 4 mg Q4HR PRN Administration Severe Pain (Scale 7 to 10) Naloxone HCl 0.2 mg 05/27/23 20:11 Naloxone 0.4 Mg/Ml 1 Ml Vial IV Q2M PRN Opioid Reversal Ondansetron HCl 4 mg 05/27/23 20:18 Ondansetron 4 Mg/2 Ml Vial IVP Q8HR PRN Nausea And Vomiting Intake and Output 05/29/23 05/30/23 05/30/23 22:59 06:59 14:59 Other: Voiding Method Toilet # Voids 6 3 05/29/23 05:03 05/29/23 05:03
[2023-05-30] MEDS: ENOXAPARIN 40 MG/0.4 ML SYRINGE SQ SCH (09:53)
[2023-05-30 10:42] LABS: Magnesium 1.7 mg/dL (1.6-2.3)
--- NOTE | 2023-05-30 11:37 | P.DS ---
Providers Date of admission: 05/27/23 20:11 Expected date of discharge: 05/30/23 Attending physician: Pramod Torres MD Consults: 05/27/23 20:18 Consult Physician Routine Consulting Provider: Aly Howell Consult Reason/Comments: stone Do you want consulting provider notified?: Yes 05/29/23 21:15 Consult Physician Routine Consulting Provider: Rigo Hinson Consult Reason/Comments: NOS SVT Do you want consulting provider notified?: Yes, Notify in am Primary care physician: [facility] Course: Right-sided nephrolithiasis with hydronephrosis Coronavirus PCR positive, asymptomatic Elevated lipase, suspect due to nausea and vomiting secondary to nephrolithiasis Coronavirus PCR positive, patient asymptomatic at this time Prostatomegaly, incidental finding on CT Asymptomatic bradycardia Hospital course: Patient is a very pleasant 52-year-old male with a past medical history of recurrent nephrolithiasis who presented to the emergency room with complaints of right flank pain with nausea and vomiting. He underwent full evaluation in the emergency department. Vital signs showing blood pressure 126/86, heart rate 65, respiratory rate 18, temp 98.4F, SpO2 99% on room air. Labs completed and reviewed. CBC showing mild leukocytosis with WBC count of 10.7. BMP unremarkable. Liver profile unremarkable. Lipase slightly elevated at 337. Urinalysis was negative for blood, ketones, or infection. Covid PCR was positive. CT abdomen and pelvis completed earlier that day revealed mild right hydronephrosis secondary to obstructing 10 mm kyphosis at the ureteropelvic junction with calyceal rupture not excluded given extensive edema around the right kidney, left nonobstructive calculi, left adrenal myolipoma, and prostatomegaly. Patient was admitted under our services with consultation to urology. KUB revealing an 8 mm calcification adjacent to the right transverse process compatible with ureteral calculus Urology evaluated, took the patient for URS with holmium laser, stone basketing and stent placement. Pt did well following the procedure with reduced pain. He was discharge dhome with instructions to f/u with Urology in 1 week. I spent 40 minutes coordinating this discharge on 05/30 Gen: awake, alert HEENT: normocephalic, atraumatic, good hearing acuity, moist mucous membranes Resp: good air exchange, breathing comfortably with no accessory muscle use CVS: good distal perfusion x 4, GI: soft, NTTP, ND : no SPT, no CVAT, villa catheter not present MSK: no pitting edema, no clubbing Neuro: non-focal, moving all extremities Psych: cooperative, euthymic mood Patient Condition at Discharge: Good Plan - Discharge Summary New Discharge Prescriptions: New Acetaminophen Tab [Tylenol] 650 mg PO Q6HR PRN tab PRN Reason: Fever And/ Or Pain Continue Ondansetron Odt [Zofran ODT] 4 mg PO Q8HR PRN PRN Reason: Nausea And Vomiting Ibuprofen [Motrin] 600 mg PO TID PRN PRN Reason: Fever And/ Or Pain Discontinued Acetaminophen-Codeine 300-30mg [Tylenol w/codeine #3] 1 tab PO Q8H PRN PRN Reason: Pain Discharge Medication List Ibuprofen [Motrin] 600 mg PO TID PRN 05/27/23 [History] Ondansetron Odt [Zofran ODT] 4 mg PO Q8HR PRN 05/27/23 [History] Acetaminophen Tab [Tylenol] 650 mg PO Q6HR PRN tab 05/30/23 [Rx] Follow up Appointment(s)/Referral(s): Aly Howell MD [STAFF PHYSICIAN] - 1 Week (office will call with appointment time) Michael Gong MD [Primary Care Provider] - 1-2 days Activity/Diet/Wound Care/Special Instructions: Increase fluid intake It is normal to have blood in the urine Ureter stent was left on a string and taped to your penis, it will be removed during your office visit Discharge Disposition: HOME SELF-CARE
--- NOTE | 2023-05-30 13:10 | CA ---
Transthoracic Echo Report Name: Tyrese Churchill Age: 52 Gender: M : 1970 Exam Date: 05/30/2023 11:11 Exam Location: [facility] Ht (in): 77 Wt (lb): 245 Ordering Physician: Joselyn Segura Attending/Referring Phys: [id number], [employer] [employer] Specialist Digna Ramos, SANTOS Procedure CPT: Indications: LV function, SVT Cardiac Hx: Technical Quality: Good Contrast 1: Total Dose (mL): Contrast 2: Total Dose (mL): MEASUREMENTS (Male / Female) Normal Values 2D ECHO LV Diastolic Diameter PLAX 5.4 cm 4.2 - 5.9 / 3.9 - 5.3 cm LV Systolic Diameter PLAX 3.4 cm IVS Diastolic Thickness 1.4 cm 0.6 - 1.0 / 0.6 - 0.9 cm LVPW Diastolic Thickness 1.3 cm 0.6 - 1.0 / 0.6 - 0.9 cm LV Relative Wall Thickness 0.5 RV Internal Dim ED PLAX 4.0 cm LA Systolic Diameter LX 4.2 cm 3.0 - 4.0 / 2.7 - 3.8 cm LA Volume 98.5 cm??? 18 - 58 / 22 - 52 cm??? LA Volume Index 39.8 cm???/m??? 16 - 28 cm???/m??? M-MODE Aortic Root Diameter MM 4.0 cm MV E Point Septal Separation 0.3 cm AV Cusp Separation MM 2.8 cm DOPPLER AV Peak Velocity 180.7 cm/s AV Peak Gradient 13.1 mmHg MV Area PHT 2.8 cm??? Mitral E Point Velocity 79.9 cm/s Mitral A Point Velocity 48.1 cm/s Mitral E to A Ratio 1.7 MV Deceleration Time 267.1 ms MV E' Velocity 8.2 cm/s Mitral E to MV E' Ratio 9.7 TR Peak Velocity 246.2 cm/s TR Peak Gradient 24.2 mmHg Right Ventricular Systolic Press 29.2 mmHg FINDINGS Left Ventricle Left ventricular ejection fraction is estimated at 55-60 %. Left ventricular cavity size normal.Mildly increased left ventricular wall thickness. Right Ventricle Moderate right ventricular dilatation. Right ventricular systolic pressure within normal limits. Right Atrium Normal right atrial size. Left Atrium Mildly increased left atrial diameter. Moderately increased left atrial volume. Mildly increased left atrial area. Mitral Valve Structurally normal mitral valve. No mitral stenosis, regurgitation or prolapse. Aortic Valve Trileaflet aortic valve. No aortic valve stenosis or regurgitation. Tricuspid Valve Structurally normal tricuspid valve. Mild tricuspid regurgitation. Pulmonic Valve Structurally normal pulmonic valve. No pulmonic regurgitation. Pericardium No pericardial effusion. Aorta Mild aortic dilatation at the level of the sinuses of valsalva 40 mm CONCLUSIONS 1. Normal left ventricular size and systolic function 2. Mild tricuspid regurgitation with no evidence of pulmonary hypertension 3. Dilated right ventricle Previewed by: Dr. Santo Carroll MD (Electronically Signed) Final Date: 30 May 2023 13:09
[2023-05-30 14:09] VITALS: BP 146/72; PULSE 43; TEMP 98.2
== END 2023-05-30 16:53 | disposition home or self-care (01) | DRG 659 ==
LOC: EC 18:40 → 5NMEDONC 20:11 → 4SSUR 21:46
PROVIDERS: ADMIT Internal Medicine; ATTEND Internal Medicine
PROC: 8E0ZXY6 Isolation (ICD-10-PCS; 2023-05-27)
PROC: 0T768DZ Dilation of Right Ureter with Intraluminal Device, Via Natural or Artificial Opening Endoscopic (ICD-10-PCS; principal; 2023-05-29 10:00)
PROC: 0TC68ZZ Extirpation of Matter from Right Ureter, Via Natural or Artificial Opening Endoscopic (ICD-10-PCS; principal; 2023-05-29 10:00)
DX: N13.2 Hydronephrosis with renal and ureteral calculous obstruction (principal); U07.1 COVID-19; I47.10 Supraventricular tachycardia, unspecified; N40.0 Benign prostatic hyperplasia without lower urinary tract symptoms; I45.10 Unspecified right bundle-branch block; R00.1 Bradycardia, unspecified; F17.220 Nicotine dependence, chewing tobacco, uncomplicated; D72.829 Elevated white blood cell count, unspecified; D17.79 Benign lipomatous neoplasm of other sites; R31.9 Hematuria, unspecified; R74.8 Abnormal levels of other serum enzymes
CPT/HCPCS: 36415; 74018; 80053; 81003; 82150; 82365; 83605; 83690; 83735; 84439; 84443; 85025; 85027; 87635; 93005; 93306; 96361; 96374; 96375; 99285

== ENCOUNTER 2023-06-11 00:51 | Inpatient (IN) | payer BC ==
[2023-06-11] MEDS ORDERED: SODIUM CHLORIDE 0.9% 1,000 ML IV ONE (01:11)
[2023-06-11] MEDS ORDERED: KETOROLAC 15 MG/ML 1 ML VIAL IVP STA (01:11)
[2023-06-11 01:31] LABS: Basophils # (A) 0.1 k/uL (0-0.2); Basophils % (A) 0 %; Eosinophils # (A) 0.1 k/uL (0-0.7); Eosinophils % (A) 1 %; HCT 48.6 % (39.0-53.0); HGB 16.8 gm/dL (13.0-17.5); Lymphocytes % (A) 5 %; MCH 30.6 pg (25.0-35.0); MCHC 34.7 g/dL (31.0-37.0); MCV 88.1 fL (80.0-100.0); Mean Platelet Volume 7.7; Monocytes % (A) 6 %; Neutrophils # (A) 16.5 k/uL (1.3-7.7); Neutrophils % (A) 87 %; Platelet Count 266 k/uL (150-450); RBC 5.51 m/uL (4.30-5.90); RDW 12.3 % (11.5-15.5)
--- NOTE | 2023-06-11 01:39 | ED ---
General Adult HPI - General Chief complaint: Fever Stated complaint: Fever, chills, headache Time Seen by Provider: 06/11/23 01:00 Source: patient, RN notes reviewed, old records reviewed Mode of arrival: ambulatory Limitations: no limitations - History of Present Illness Initial comments: 52-year-old male presenting with fever, dysuria. Patient had recent kidney stone removal with stent placement on May 29. Patient states he also tested positive for coronavirus at that time. He states he's been doing well for the past several days but today developed fever, myalgia. - Related Data Home Medications Medication Instructions Recorded Confirmed No Known Home Medications 06/11/23 06/11/23 Allergies Allergy/AdvReac Type Severity Reaction Status Date / Time No Known Allergies Allergy Verified 06/11/23 10:36 Review of Systems ROS Statement: Those systems with pertinent positive or pertinent negative responses have been documented in the HPI. ROS Other: All systems not noted in ROS Statement are negative. Past Medical History Past Medical History: No Reported History Additional Past Medical History / Comment(s): kidney stones History of Any Multi-Drug Resistant Organisms: None Reported Past Surgical History: No Surgical Hx Reported Past Anesthesia/Blood Transfusion Reactions: No Reported Reaction Past Psychological History: No Psychological Hx Reported Smoking Status: Light tobacco smoker Past Alcohol Use History: None Reported Past Drug Use History: None Reported General Exam Limitations: no limitations General appearance: alert, in no apparent distress Head exam: Present: atraumatic, normocephalic Eye exam: Present: normal appearance, PERRL ENT exam: Present: mucous membranes dry Neck exam: Present: normal inspection. Absent: tenderness, meningismus Respiratory exam: Present: normal lung sounds bilaterally. Absent: respiratory distress, wheezes Cardiovascular Exam: Present: regular rate, normal rhythm GI/Abdominal exam: Present: soft. Absent: distended, tenderness, guarding Extremities exam: Present: normal inspection, normal capillary refill Neurological exam: Present: alert, oriented X3, CN II-XII intact. Absent: motor sensory deficit Psychiatric exam: Present: normal affect, normal mood Skin exam: Present: warm, dry, intact. Absent: cyanosis, diaphoretic Course Vital Signs 06/11/23 06/11/23 06/11/23 00:58 01:27 02:51 Temperature 99.7 F H 99.2 F Pulse Rate 106 H 74 Respiratory 20 18 Rate Blood Pressure 131/78 138/79 O2 Sat by Pulse 96 99 Oximetry 06/11/23 06/11/23 06/11/23 03:55 05:19 06:37 Temperature 103.2 F H 103.3 F H Pulse Rate 103 H 95 Respiratory 18 18 Rate Blood Pressure 139/94 129/83 O2 Sat by Pulse 96 96 Oximetry Medical Decision Making - Medical Decision Making Was pt. sent in by a medical professional or institution (, PA, DEBARKER OPERATOR, urgent care, hospital, or retirement...) When possible be specific @ -No Did you speak to anyone other than the patient for history (EMS, parent, family, police, friend...)? What history was obtained from this source @ -No Did you review nursing and triage notes (agree or disagree)? Why? @ -I reviewed and agree with nursing and triage notes Were old charts reviewed (outside hosp., previous admission, EMS record, old EKG, old radiological studies, urgent care reports/EKG's, retirement records)? Report findings @ -No old charts were reviewed Differential Diagnosis (chest pain, altered mental status, abdominal pain women, abdominal pain men, vaginal bleeding, weakness, fever, dyspnea, syncope, headache, dizziness, GI bleed, back pain, seizure, CVA, palpatations, mental health, musculoskeletal)? @ Differential Fever: Pneumonia, viral URI, endocarditis, myocarditis, pericarditis, otitis, sinusitis, peritonsillar Abscess, retropharyngeal Abscess, epiglottitis, per itonitis, appendicitis, Mindy cystitis, diverticulitis, hepatitis, colitis, UTI, PID, TOA, pyelonephritis, prostatitis, epididymitis, meningitis, encephalitis, pulmonary embolism, CVA, thyroid storm, pancreatitis, adrenal crisis, cavernous sinus thrombosis, this is not meant to be an all-inclusive list. EKG interpreted by me (3pts min.). @ -As above X-rays interpreted by me (1pt min.). @ -None done CT interpreted by me (1pt min.). @ -None done U/S interpreted by me (1pt. min.). @ -None done What testing was considered but not performed or refused? (CT, X-rays, U/S, labs)? Why? @ -None What meds were considered but not given or refused? Why? @ -None Did you discuss the management of the patient with other professionals (agustina greenberg i.e. , PA, DEBARKER OPERATOR, lab, RT, psych nurse, social services analyst, adoption manager, teacher, tactical deception plans officer, caser in)? Give summary @ -Dr. Torres Was smoking cessation discussed for >3mins.? @ -No Was critical care preformed (if so, how long)? @ -No Were there social determinants of health that impacted care today? How? (Homelessness, low income, unemployed, alcoholism, drug addiction, transpo rtation, low edu. Level, literacy, decrease access to med. care, correction, rehab)? @ -No Was there de-escalation of care discussed even if they declined (Discuss DNR or withdrawal of care, Hospice)? DNR status @ -No What co-morbidities impacted this encounter? (DM, HTN, Smoking, COPD, CAD, Cancer, CVA, ARF, Chemo, Hep., AIDS, mental health diagnosis, sleep apnea, morbid obesity)? @Kidney stone, recent stent Was patient admitted / discharged? Hospital course, mention meds given and route , prescriptions, significant lab abnormalities, going to OR and other pertinent info. @ -[52-year-old male presenting with fever, tachycardia, history of ureteral stent secondary to obstructing kidney stone on May 29. Patient febrile with systemic symptoms. White count of 19,000. Heart rate improves with fluids and antipyretics. Viral swab is negative. Patient has normal kidney function, normal lactic acid. Urinalysis does appear infected, urine culture pending. P atient given IV antibiotics will be admitted for IV fluids. Undiagnosed new problem with uncertain prognosis? @ -No Drug Therapy requiring intensive monitoring for toxicity (Heparin, Nitro, Insulin, Cardizem)? @ -No Were any procedures done? @ -No Diagnosis/symptom? @ -[UTI Acute, or Chronic, or Acute on Chronic? @ acute Uncomplicated (without systemic symptoms) or Complicated (systemic symptoms)? @ -default Side effects of treatment? @ -No Exacerbation, Progression, or Severe Exacerbation? @ -No Poses a threat to life or bodily function? How? (Chest pain, USA, IA, pneumonia, PE, COPD, DKA, ARF, appy, cholecystitis, CVA, Diverticulitis, Homicidal, Suicidal, threat to staff... and all critical care pts) @ -yes, sepsis - Lab Data Result diagrams: 06/11/23 01:13 06/11/23 01:13 Lab Results 06/11/23 06/11/23 06/11/23 Range/Units 01:13 01:13 01:13 WBC 19.0 H (3.8-10.6) k/uL RBC 5.51 (4.30-5.90) m/uL Hgb 16.8 (13.0-17.5) gm/dL Hct 48.6 (39.0-53.0) % MCV 88.1 (80.0-100.0) fL MCH 30.6 (25.0-35.0) pg MCHC 34.7 (31.0-37.0) g/dL RDW 12.3 (11.5-15.5) % Plt Count 266 (150-450) k/uL MPV 7.7 Neutrophils % 87 % Lymphocytes % 5 % Monocytes % 6 % Eosinophils % 1 % Basophils % 0 % Neutrophils # 16.5 H (1.3-7.7) k/uL Lymphocytes # 1.0 (1.0-4.8) k/uL Monocytes # 1.0 (0-1.0) k/uL Eosinophils # 0.1 (0-0.7) k/uL Basophils # 0.1 (0-0.2) k/uL Sodium 136 L (137-145) mmol/L Potassium 3.5 (3.5-5.1) mmol/L Chloride 102 (98-107) mmol/L Carbon Dioxide 19 L (22-30) mmol/L Anion Gap 15 mmol/L BUN 12 (9-20) mg/dL Creatinine 1.00 (0.66-1.25) mg/dL Est GFR (CKD-EPI)AfAm >90 (>60 ml/min/1.73 sqM) Est GFR (CKD-EPI)NonAf 87 (>60 ml/min/1.73 sqM) Glucose 108 H (74-99) mg/dL Plasma Lactic Acid Clarence (0.7-2.0) mmol/L Calcium 9.5 (8.4-10.2) mg/dL Total Bilirubin 1.5 H (0.2-1.3) mg/dL AST 25 (17-59) U/L ALT 47 (4-49) U/L Alkaline Phosphatase 107 (38-126) U/L Total Protein 7.9 (6.3-8.2) g/dL Albumin 4.4 (3.5-5.0) g/dL Urine Color Yellow Urine Appearance Cloudy (Clear) Urine pH 6.0 (5.0-8.0) Ur Specific [place] 1.014 (1.001-1.035) Urine Protein 1+ H (Negative) Urine Glucose (UA) Negative (Negative) Urine Ketones Negative (Negative) Urine Blood Moderate H (Negative) Urine Nitrite Positive (Negative) Urine Bilirubin Negative (Negative) Urine Urobilinogen <2.0 (<2.0) mg/dL Ur Leukocyte Esterase Large H (Negative) Urine RBC 12 H (0-5) /hpf Urine WBC >182 H (0-5) /hpf Urine WBC Clumps Few H (None) /hpf Urine Bacteria Rare H (None) /hpf Urine Mucus Few H (None) /hpf Influenza Type A (PCR) (Not Detectd) Influenza Type B (PCR) (Not Detectd) RSV (PCR) (Not Detectd) SARS-CoV-2 (PCR) (Not Detectd) 06/11/23 06/11/23 Range/Units 01:13 01:13 WBC (3.8-10.6) k/uL RBC (4.30-5.90) m/uL Hgb (13.0-17.5) gm/dL Hct (39.0-53.0) % MCV (80.0-100.0) fL MCH (25.0-35.0) pg MCHC (31.0-37.0) g/dL RDW (11.5-15.5) % Plt Count (150-450) k/uL MPV Neutrophils % % Lymphocytes % % Monocytes % % Eosinophils % % Basophils % % Neutrophils # (1.3-7.7) k/uL Lymphocytes # (1.0-4.8) k/uL Monocytes # (0-1.0) k/uL Eosinophils # (0-0.7) k/uL Basophils # (0-0.2) k/uL Sodium (137-145) mmol/L Potassium (3.5-5.1) mmol/L Chloride (98-107) mmol/L Carbon Dioxide (22-30) mmol/L Anion Gap mmol/L BUN (9-20) mg/dL Creatinine (0.66-1.25) mg/dL Est GFR (CKD-EPI)AfAm (>60 ml/min/1.73 sqM) Est GFR (CKD-EPI)NonAf (>60 ml/min/1.73 sqM) Glucose (74-99) mg/dL Plasma Lactic Acid Clarence 1.0 (0.7-2.0) mmol/L Calcium (8.4-10.2) mg/dL Total Bilirubin (0.2-1.3) mg/dL AST (17-59) U/L ALT (4-49) U/L Alkaline Phosphatase (38-126) U/L Total Protein (6.3-8.2) g/dL Albumin (3.5-5.0) g/dL Urine Color Urine Appearance (Clear) Urine pH (5.0-8.0) Ur Specific [place] (1.001-1.035) Urine Protein (Negative) Urine Glucose (UA) (Negative) Urine Ketones (Negative) Urine Blood (Negative) Urine Nitrite (Negative) Urine Bilirubin (Negative) Urine Urobilinogen (<2.0) mg/dL Ur Leukocyte Esterase (Negative) Urine RBC (0-5) /hpf Urine WBC (0-5) /hpf Urine WBC Clumps (None) /hpf Urine Bacteria (None) /hpf Urine Mucus (None) /hpf Influenza Type A (PCR) Not Detected (Not Detectd) Influenza Type B (PCR) Not Detected (Not Detectd) RSV (PCR) Not Detected (Not Detectd) SARS-CoV-2 (PCR) Not Detected (Not Detectd) Disposition Clinical Impression: UTI (urinary tract infection), Ureteral stent present Disposition: ADMITTED IP TO THIS HOSP Condition: Stable Is patient prescribed a controlled substance at d/c from ED?: No Time of Disposition: 02:29
[2023-06-11 01:42] LABS: ALT 47 U/L (4-49); AST 25 U/L (17-59); African American GFR (CKD) >90 (>60 ml/min/1.73 sqM); Albumin 4.4 g/dL (3.5-5.0); Alkaline Phosphatase 107 U/L (38-126); Anion Gap 15 mmol/L; Blood Urea Nitrogen 12 mg/dL (9-20); Calcium 9.5 mg/dL (8.4-10.2); Carbon Dioxide 19 mmol/L (22-30); Chloride 102 mmol/L (98-107); Glucose 108 mg/dL (74-99); Non-African American GFR(CKD) 87 (>60 ml/min/1.73 sqM); Potassium 3.5 mmol/L (3.5-5.1); Sodium 136 mmol/L (137-145); Total Bilirubin 1.5 mg/dL (0.2-1.3); Total Protein 7.9 g/dL (6.3-8.2)
[2023-06-11 02:15] LABS: Appearance,Urine Cloudy (Clear); Bacteria,Urine Rare /hpf; Bilirubin,Urine Negative (Negative); Blood,Urine Moderate (Negative); Color,Urine Yellow; Glucose,Urine (UA) Negative (Negative); Ketones,Urine Negative (Negative); Leukocyte Esterase,Urine Large (Negative); Mucus,Urine Few /hpf; Nitrite,Urine Positive (Negative); Protein,Urine 1+ (Negative); RBC,Urine 12 /hpf (0-5); Specific Gravity,Urine 1.014 (1.001-1.035); Urobilinogen,Urine <2.0 mg/dL (<2.0); WBC,Urine >182 /hpf (0-5)
[2023-06-11] MEDS ORDERED: NALOXONE 0.4 MG/ML 1 ML VIAL IV PRN (02:22)
[2023-06-11] MEDS ORDERED: HYDROmorphone 0.5 MG/0.5 ML SYRINGE IVP STA (02:27)
[2023-06-11] MEDS: SODIUM CHLORIDE 0.9% 1,000 ML IV SCH ×3 (02:38→17:51)
--- NOTE | 2023-06-11 03:52 | P.HPIM ---
History of Present Illness H&P Date: 06/11/23 Patient is a 52-year-old male with a PMH of recurrent nephrolithiasis who presents to the emergency room with complaints of right-sided abdominal pain, fever, and chills. Of note, the patient was recently hospitalized from 05/27- 05/30 for nephrolithiasis requiring lithotripsy and stent placement. The patient reports that he had been doing well until this morning when he woke up with right-sided abdominal discomfort, rated 5 out of 10, radiating down into the groin. He reports persistent fever and chills throughout the day. Denies chest discomfort, shortness of breath, nausea, vomiting, diarrhea. EKG in the emergency room revealed sinus bradycardia with left axis deviation and a right bundle-branch block at 55 bpm as reviewed by me. Laboratory evaluation was remarkable for UA consistent with UTI, respiratory viral panel negative, leukocytosis of 19.0, hemoglobin 16.8, sodium 136, CO2 19, glucose 108, lactic acid 1.0 and creatinine 1.0. The patient has a T-max of 99.7F in the emergency room with BP 131/78, pulse 106, and SpO2 96% on room air. ED documentation reviewed and case discussed with ED provider. Review of systems: Pertinent positives and negatives as discussed in HPI, a complete review of systems was performed and all other systems are negative. Physical examination: Vital signs reviewed General: non toxic, no distress, appears at stated age, normal weight Derm: no unusual rashes/lesions, warm Head: atraumatic, normocephalic, symmetric Eyes: EOMI, no lid lag, anicteric sclera, pupils equal round reactive to light ENT: Nose and ears atraumatic Neck: No cervical lymphadenopathy, trachea midline, supple Mouth: no lip lesion, mucus membranes moist Cardiovascular: S1S2 reg, no murmur, positive dorsalis pedis pulse bilateral, no edema Lungs: CTA bilateral, no rhonchi, no rales, no accessory muscle use Abdominal: soft, right CVA and flank tenderness, no guarding Ext: muscle strength 5 out of 5 in all 4 extremities grossly, no gross muscle atrophy, no contractures, Neuro: CN II-XI grossly intact, no gross focal neuro deficits Psych: Alert, oriented, appropriate affect Assessment: Sepsis secondary to UTI with recent nephrolithiasis and stenting Imaging: EKG in the emergency room revealed sinus bradycardia with left axis deviation and a right bundle-branch block at 55 bpm as reviewed by me. Data Review: Laboratory evaluation was remarkable for UA consistent with UTI, respiratory viral panel negative, leukocytosis of 19.0, hemoglobin 16.8, sodium 136, CO2 19, glucose 108, lactic acid 1.0 and creatinine 1.0. Plan: Obtain CT abdomen and pelvis with contrast Continue with IV ceftriaxone 2 g every 24 hours Continue IV fluids normal saline 130 mL/h Pain control Urology consulted Follow up urine and blood cultures DVT prophylaxis: Lovenox Subq The patient is admitted with an anticipated greater than 2 midnight stay for evaluation of UTI CODE STATUS: Full Code Discussed with: Patient Anticipated discharge place: Home Past Medical History Past Medical History: No Reported History Additional Past Medical History / Comment(s): kidney stones History of Any Multi-Drug Resistant Organisms: None Reported Past Surgical History: No Surgical Hx Reported Past Anesthesia/Blood Transfusion Reactions: No Reported Reaction Past Psychological History: No Psychological Hx Reported Smoking Status: Light tobacco smoker Past Alcohol Use History: None Reported Past Drug Use History: None Reported Medications and Allergies Home Medications Medication Instructions Recorded Confirmed Type Ibuprofen [Motrin] 600 mg PO TID PRN 05/27/23 05/27/23 History Ondansetron Odt [Zofran ODT] 4 mg PO Q8HR PRN 05/27/23 05/27/23 History Acetaminophen Tab [Tylenol] 650 mg PO Q6HR PRN tab 05/30/23 Rx Allergies Allergy/AdvReac Type Severity Reaction Status Date / Time No Known Allergies Allergy Verified 06/11/23 01:00 Physical Exam Vitals: Vital Signs Temp Pulse Resp BP Pulse Ox 06/11/23 02:51 99.2 F 06/11/23 01:27 74 18 138/79 99 06/11/23 00:58 99.7 F H 106 H 20 131/78 96 Intake and Output 06/10/23 06/10/23 06/11/23 14:59 22:59 06:59 Other: Weight 108.862 kg Results CBC & Chem 7: 06/11/23 01:13 06/11/23 01:13 Labs: Abnormal Lab Results - Last 24 Hours (Table) 06/11/23 06/11/23 06/11/23 Range/Units 01:13 01:13 01:13 WBC 19.0 H (3.8-10.6) k/uL Neutrophils # 16.5 H (1.3-7.7) k/uL Sodium 136 L (137-145) mmol/L Carbon Dioxide 19 L (22-30) mmol/L Glucose 108 H (74-99) mg/dL Total Bilirubin 1.5 H (0.2-1.3) mg/dL Urine Protein 1+ H (Negative) Urine Blood Moderate H (Negative) Ur Leukocyte Esterase Large H (Negative) Urine RBC 12 H (0-5) /hpf Urine WBC >182 H (0-5) /hpf Urine WBC Clumps Few H (None) /hpf Urine Bacteria Rare H (None) /hpf Urine Mucus Few H (None) /hpf
[2023-06-11] MEDS: KETOROLAC 15 MG/ML 1 ML VIAL IVP PRN ×3 (06:36→23:26)
[2023-06-11] MEDS: ENOXAPARIN 40 MG/0.4 ML SYRINGE SQ SCH (08:02)
--- NOTE | 2023-06-11 10:31 | P.PN ---
Subjective Progress Note Date: 06/11/23 Patient is a patient is a 52-year-old male with 3 current nephrolithiasis was recently hospitalized from 05/27 through 05/30 with nephrolithiasis with hydronephrosis where he underwent laser with stone basketing and stent placement. On arrival to the ER he was complaining of pain and fevers. However 3 hours later spiked to 103.2. Labs were remarkable for white blood cell count 19 and urinalysis consistent with urinary tract infection. She abdomen and pelvis was performed but results were unavailable. He is given a dose of Rocephin and was started on IV fluids. He was admitted for further monitoring. urology was consulted. Patient seen and examined at bedside. He continues to overall not feeling well and have some flank pain. He is hoping that they will remove his urethral stent Vital signs reviewed General: nontoxic, mild distress due to pain, appears at stated age Cardiovascular: S1S2 reg, no murmur, positive posterior tibial pulse bilateral, Lungs: CTA bilateral, no rhonchi, no rales , no accessory muscle use Abdominal: soft, nontender to palpation, no guarding, no appreciable organomegaly Ext: no gross muscle atrophy, no edema b/l lower extremities, no contractures Neuro: CN II-XI grossly intact, no focal neuro deficits Psych: Alert, oriented, appropriate affect Assessment/Plan: Pyelonephritis with sepsis Uretheral stent -Await CT abdomen and pelvis -Await urology consultation -Continue with IV fluids, normal saline at 130 mL/h -Rocephin 2 g IV piggyback every 24 hours Imaging: Currently awaiting results of computed tomography scan Data Review: As per HPI, none new DVT prophylaxis: Lovenox Anticipated discharge date: 48-[address]: home This dictation was prepared using [employer] voice recognition software. Though every attempt is made to correct errors during dictation some may still exist. Objective - Vital Signs Vital signs: Vital Signs Temp 103.3 F H 06/11/23 05:19 Pulse 95 06/11/23 06:37 Resp 18 06/11/23 06:37 BP 129/83 06/11/23 06:37 Pulse Ox 96 06/11/23 06:37 FiO2 Intake & Output 06/10/23 06/11/23 06/11/23 18:59 06:59 18:59 Weight 108.862 kg - Labs CBC & Chem 7: 06/11/23 01:13 06/11/23 01:13 Labs: Abnormal Lab Results - Last 24 Hours (Table) 06/11/23 06/11/23 06/11/23 Range/Units 01:13 01:13 01:13 WBC 19.0 H (3.8-10.6) k/uL Neutrophils # 16.5 H (1.3-7.7) k/uL Sodium 136 L (137-145) mmol/L Carbon Dioxide 19 L (22-30) mmol/L Glucose 108 H (74-99) mg/dL Total Bilirubin 1.5 H (0.2-1.3) mg/dL Urine Protein 1+ H (Negative) Urine Blood Moderate H (Negative) Ur Leukocyte Esterase Large H (Negative) Urine RBC 12 H (0-5) /hpf Urine WBC >182 H (0-5) /hpf Urine WBC Clumps Few H (None) /hpf Urine Bacteria Rare H (None) /hpf Urine Mucus Few H (None) /hpf
--- NOTE | 2023-06-11 11:36 | CT ---
EXAMINATION TYPE: CT abdomen pelvis w con DATE OF EXAM: 06/11/2023 COMPARISON: 05/27/2023 INDICATION: Stent placed in right kidney now has fever. DLP: 1925.8 mGycm, Automated exposure control for dose reduction was used. CONTRAST: 100 mL of Isovue 300. Study performed without Oral Contrast TECHNIQUE: Axial images were obtained from above the diaphragm to the pubic rami in the axial plane a t 5 mm thick sections. Reconstructed images are reviewed on the computer in the coronal plane. FINDINGS: Limited CT sections are obtained the lung bases. The lung bases are clear. CT ABDOMEN: Liver: Scattered small hypodensities are in the superior right lobe liver likely on the basis of smal l hepatic cysts. Spleen: Normal splenule is at the anterior spleen. Pancreas: Normal Adrenal glands: Left adrenal gland is 2.6 cm fat density. No suspicious masses evident. Right adrenal gland is unremarkable. Gallbladder: Normal Kidneys: There is a 0.4 cm nonobstructing renal stone lateral upper pole left kidney. There is a 2.0 cm cyst inferior medial left kidney. Right ureteral stent is present. Mild right hydronephrosis is pr esent. Hydroureter is not evident.. Aorta: Normal Inferior vena cava: Normal. CT PELVIS: Loops of bowel within the abdomen and pelvis are normal. This study is without oral contrast limi ting bowel evaluation. Appendix: Normal as visualized. Urinary bladder: Normal. Genitourinary structures: Prostate is prominent. Osseous structures: No suspicious lytic or sclerotic lesions are evident. Degenerative disc changes p resent L5-S1. Spondylolysis of L5 is present. IMPRESSION: 1. Right ureteral stent with mild right hydronephrosis. 2. Nonobstructing left renal stone. 3. Suspicious changes to suggest a source of fever not identified.
[2023-06-11] MEDS: MORPHINE SULFATE 2 MG/ML SYRINGE IVP PRN ×2 (13:49→19:47)
--- NOTE | 2023-06-11 15:19 | P.GSCN ---
History of Present Illness Consult date: 06/11/23 Reason for Consult: UTI, Right ureteral stone History of present illness: This is a 52-year-old male that presented to the hospital last month with a 1 cm right ureteral stone, underwent right-sided ureteroscopy with holmium laser on May 29. He was discharged home following his procedure. Presented to the hospital this morning with fevers and chills associated with right-sided flank pain. Denies any dysuria or gross hematuria. On presentation patient was febrile in the 103 and white count was elevated at 19. He does have a stent which is attached to string. Review of Systems - Constitutional Reports chills, Reports fever - EENT Ears, nose, mouth and throat: Denies dysphagia - Cardiovascular Denies chest pain, Denies shortness of breath - Gastrointestinal Reports as per HPI - Genitourinary Reports flank pain, Denies hematuria - Neurological Denies headaches, Denies syncope - Hematologic/Lymphatic Denies easy bleeding, Denies easy bruising Past Medical History Past Medical History: No Reported History Additional Past Medical History / Comment(s): kidney stones History of Any Multi-Drug Resistant Organisms: None Reported Past Surgical History: No Surgical Hx Reported Additional Past Surgical History / Comment(s): Stent placement-Lithotripsy 05/27/2023 Past Anesthesia/Blood Transfusion Reactions: No Reported Reaction Past Psychological History: No Psychological Hx Reported Smoking Status: Never smoker Past Alcohol Use History: None Reported Past Drug Use History: None Reported Medications and Allergies Home Medications Medication Instructions Recorded Confirmed Type No Known Home Medications 06/11/23 06/11/23 History Allergies Allergy/AdvReac Type Severity Reaction Status Date / Time No Known Allergies Allergy Verified 06/11/23 10:36 Surgical - Exam Vital Signs Temp Pulse Resp BP Pulse Ox 99.7 F H 106 H 20 131/78 96 06/11/23 00:58 06/11/23 00:58 06/11/23 00:58 06/11/23 00:58 06/11/23 00:58 - General no distress, no pain - Eyes normal ocular movement, no pale - ENT normal nares, normal mucosa - Respiratory normal expansion, normal respiratory effort - Abdomen Abdomen: soft, non tender Results - Labs 06/11/23 01:13 06/11/23 01:13 Abnormal Lab Results - Last 24 Hours (Table) 06/11/23 06/11/23 06/11/23 Range/Units 01:13 01:13 01:13 WBC 19.0 H (3.8-10.6) k/uL Neutrophils # 16.5 H (1.3-7.7) k/uL Sodium 136 L (137-145) mmol/L Carbon Dioxide 19 L (22-30) mmol/L Glucose 108 H (74-99) mg/dL Total Bilirubin 1.5 H (0.2-1.3) mg/dL Urine Protein 1+ H (Negative) Urine Blood Moderate H (Negative) Ur Leukocyte Esterase Large H (Negative) Urine RBC 12 H (0-5) /hpf Urine WBC >182 H (0-5) /hpf Urine WBC Clumps Few H (None) /hpf Urine Bacteria Rare H (None) /hpf Urine Mucus Few H (None) /hpf Diabetes panel 06/11/23 Range/Units 01:13 Sodium 136 L (137-145) mmol/L Potassium 3.5 (3.5-5.1) mmol/L Chloride 102 (98-107) mmol/L Carbon Dioxide 19 L (22-30) mmol/L BUN 12 (9-20) mg/dL Creatinine 1.00 (0.66-1.25) mg/dL Glucose 108 H (74-99) mg/dL Calcium 9.5 (8.4-10.2) mg/dL AST 25 (17-59) U/L ALT 47 (4-49) U/L Alkaline Phosphatase 107 (38-126) U/L Total Protein 7.9 (6.3-8.2) g/dL Albumin 4.4 (3.5-5.0) g/dL Calcium panel 06/11/23 Range/Units 01:13 Calcium 9.5 (8.4-10.2) mg/dL Albumin 4.4 (3.5-5.0) g/dL Pituitary panel 06/11/23 Range/Units 01:13 Sodium 136 L (137-145) mmol/L Potassium 3.5 (3.5-5.1) mmol/L Chloride 102 (98-107) mmol/L Carbon Dioxide 19 L (22-30) mmol/L BUN 12 (9-20) mg/dL Creatinine 1.00 (0.66-1.25) mg/dL Glucose 108 H (74-99) mg/dL Calcium 9.5 (8.4-10.2) mg/dL Adrenal panel 06/11/23 Range/Units 01:13 Sodium 136 L (137-145) mmol/L Potassium 3.5 (3.5-5.1) mmol/L Chloride 102 (98-107) mmol/L Carbon Dioxide 19 L (22-30) mmol/L BUN 12 (9-20) mg/dL Creatinine 1.00 (0.66-1.25) mg/dL Glucose 108 H (74-99) mg/dL Calcium 9.5 (8.4-10.2) mg/dL Total Bilirubin 1.5 H (0.2-1.3) mg/dL AST 25 (17-59) U/L ALT 47 (4-49) U/L Alkaline Phosphatase 107 (38-126) U/L Total Protein 7.9 (6.3-8.2) g/dL Albumin 4.4 (3.5-5.0) g/dL Assessment and Plan Assessment: 52-year-old male with sepsis post right-sided ureteroscopy with holmium laser on May 29. Patient does have a stent in place. I reviewed the CT no residual stones or any additional abnormalities within the kidney . The stent is in the right location. Patient was febrile on presentation, white count is 19. Urinalysis is consistent with UTI. -Patient can have a diet from urology standpoint -We'll keep stent in place until patient is afebrile for 24-48 hours, at that point the stent can be removed. The stent is on a string. It will be removed once patient's UTI resolves
[2023-06-11] MEDS: HYDROcodone/APAP 5-325MG 1 EACH TAB PO PRN (17:50)
[2023-06-11] MEDS: ONDANSETRON 4 MG/2 ML VIAL IVP PRN (19:47)
[2023-06-11] MEDS: ACETAMINOPHEN TAB 325 MG TAB PO PRN (20:03)
[2023-06-12] MEDS: SODIUM CHLORIDE 0.9% 1,000 ML IV SCH ×4 (03:22→18:30)
[2023-06-12] MEDS ORDERED: IBUPROFEN 400 MG TAB PO STA (03:44)
[2023-06-12] MEDS: MORPHINE SULFATE 2 MG/ML SYRINGE IVP PRN (03:48)
[2023-06-12] MEDS: ACETAMINOPHEN TAB 325 MG TAB PO PRN ×2 (03:53→16:18)
[2023-06-12] MEDS: PIPERACILLIN-TAZOBACTAM 3.375 GM in SODIUM CHLORIDE 0.9% 100 ML IVPB SCH ×3 (05:16→20:59)
[2023-06-12] MEDS: ONDANSETRON 4 MG/2 ML VIAL IVP PRN ×2 (06:03→22:35)
[2023-06-12] MEDS: ENOXAPARIN 40 MG/0.4 ML SYRINGE SQ SCH (08:34)
--- NOTE | 2023-06-12 11:45 | P.PN ---
Subjective Progress Note Date: 06/12/23 52-year-old male with recurrent nephrolithiasis was recently hospitalized from 05/27 through 05/30 with nephrolithiasis with hydronephrosis where he underwent laser with stone basketing and stent placement. On arrival to the ER he was complaining of pain and fevers. However 3 hours later spiked to 103.2. Labs were remarkable for white blood cell count 19 and urinalysis consistent with urinary tract infection. CT abdomen and pelvis showed right ureteral stent with mild R hydronephrosis, nonobstructing left renal stone. He is given a dose of Rocephin and was started on IV fluids. He was admitted for sepsis secondary to pyelonephritis. urology was consulted. Patient seen and examined at bedside. Continues to be febrile overnight denies any chest pain, shortness of breath, nausea, vomiting, diarrhea, constipation, or urinary complaints Vital signs reviewed General: nontoxic, mild distress due to pain, appears at stated age Cardiovascular: S1S2 reg, no murmur, positive posterior tibial pulse bilateral, Lungs: CTA bilateral, no rhonchi, no rales , no accessory muscle use Abdominal: soft, right flank tenderness, no guarding, no appreciable organomegaly Ext: no gross muscle atrophy, no edema b/l lower extremities, no contractures Neuro: CN II-XI grossly intact, no focal neuro deficits Psych: Alert, oriented, appropriate affect Assessment/Plan: Patient needs close monitoring, prognosis is guarded. Pyelonephritis with sepsis Status post recent Uretheral stent -Urology note reviewed from 06/11, considering stent removal if afebrile for 24-48 hours -Continue with IV fluids, normal saline at 130 mL/h -Urine growing gram-negative bacilli -Patient continues to remain febrile, antibiotics broadened to IV Zosyn 3.375 g every 8 hours - Blood cultures pending -Tylenol 650 every 6 hours, [place] 5 every 6 hours as needed, toradol 15 IV q6h PRN, and morphine IV 2 q6h PRN, monitor for respiratory depression Imaging: CT abdomen report reviewed, shows right ureteral stent with mild right hydronephrosis, nonobstructing left renal stone Data Review: CBC and BMP ordered, pending results, will be reviewed when available DVT prophylaxis: Lovenox Anticipated discharge date: Pending clinical course Anticipated discharge place: home Objective - Vital Signs Vital signs: Vital Signs Temp 98.0 F 01/02/24 07:07 Pulse 72 06/12/23 07:07 Resp 20 06/12/23 07:07 BP 126/76 06/12/23 07:07 Pulse Ox 95 06/12/23 07:07 FiO2 Intake & Output 06/11/23 06/12/23 06/12/23 18:59 06:59 18:59 Intake Total 240 590 Output Total 600 300 700 Balance -360 290 -700 Intake: Oral 240 590 Output: Urine 600 300 700 Other: Voiding Method Toilet Toilet Toilet # Voids 1 - Labs CBC & Chem 7: 06/11/23 01:13 06/11/23 01:13 Labs: Microbiology - Last 24 Hours (Table) 06/11/23 01:13 Urine Culture - Preliminary Urine,Voided Gram Neg Bacilli
[2023-06-12 12:14] LABS: Basophils % (A) 0 %; Eosinophils # (A) 0.1 k/uL (0-0.7); Eosinophils % (A) 1 %; HCT 39.8 % (39.0-53.0); HGB 13.9 gm/dL (13.0-17.5); Lymphocytes # (A) 1.1 k/uL (1.0-4.8); Lymphocytes % (A) 11 %; MCH 31.1 pg (25.0-35.0); MCHC 34.9 g/dL (31.0-37.0); MCV 89.1 fL (80.0-100.0); Mean Platelet Volume 7.7; Monocytes # (A) 0.8 k/uL (0-1.0); Monocytes % (A) 9 %; Neutrophils # (A) 7.3 k/uL (1.3-7.7); Neutrophils % (A) 77 %; Platelet Count 190 k/uL (150-450); RBC 4.47 m/uL (4.30-5.90); RDW 12.9 % (11.5-15.5); WBC 9.5 k/uL (3.8-10.6)
[2023-06-12 12:25] LABS: African American GFR (CKD) >90 (>60 ml/min/1.73 sqM); Anion Gap 11 mmol/L; Blood Urea Nitrogen 15 mg/dL (9-20); Calcium 8.4 mg/dL (8.4-10.2); Carbon Dioxide 25 mmol/L (22-30); Chloride 103 mmol/L (98-107); Glucose 105 mg/dL (74-99); Non-African American GFR(CKD) >90 (>60 ml/min/1.73 sqM); Potassium 3.5 mmol/L (3.5-5.1); Sodium 139 mmol/L (137-145)
[2023-06-12] MEDS: KETOROLAC 15 MG/ML 1 ML VIAL IVP PRN (20:59)
[2023-06-13] MEDS: ACETAMINOPHEN TAB 325 MG TAB PO PRN (02:50)
[2023-06-13] MEDS: SODIUM CHLORIDE 0.9% 1,000 ML IV SCH ×3 (02:58→13:14)
[2023-06-13] MEDS: PIPERACILLIN-TAZOBACTAM 3.375 GM in SODIUM CHLORIDE 0.9% 100 ML IVPB SCH ×3 (04:47→19:48)
[2023-06-13] MEDS: KETOROLAC 15 MG/ML 1 ML VIAL IVP PRN (04:47)
[2023-06-13] MEDS: ENOXAPARIN 40 MG/0.4 ML SYRINGE SQ SCH (09:00)
--- NOTE | 2023-06-13 11:37 | P.PN ---
Subjective Progress Note Date: 06/13/23 52-year-old male with recurrent nephrolithiasis was recently hospitalized from 05/27 through 05/30 with nephrolithiasis with hydronephrosis where he underwent laser with stone basketing and stent placement. On arrival to the ER he was complaining of pain and fevers. However 3 hours later spiked to 103.2. Labs were remarkable for white blood cell count 19 and urinalysis consistent with urinary tract infection. CT abdomen and pelvis showed right ureteral stent with mild R hydronephrosis, nonobstructing left renal stone. He is given a dose of Rocephin and was started on IV fluids. He was admitted for sepsis secondary to pyelonephritis. urology was consulted. Patient seen and examined at bedside. Had one episode of fever overnight. Denies any chest pain, shortness of breath, nausea, vomiting, diarrhea, constipation, or urinary complaints Vital signs reviewed General: nontoxic, not in acute distress, appears at stated age Cardiovascular: S1S2 reg, no murmur, positive posterior tibial pulse bilateral, Lungs: CTA bilateral, no rhonchi, no rales , no accessory muscle use Abdominal: soft, right flank tenderness, no guarding, no appreciable organomegaly Ext: no gross muscle atrophy, no edema b/l lower extremities, no contractures Neuro: CN II-XI grossly intact, no focal neuro deficits Psych: Alert, oriented, appropriate affect Assessment/Plan: Patient needs close monitoring, prognosis is guarded. Pyelonephritis with sepsis Status post recent Uretheral stent -Urology following, considering stent removal if afebrile for 24-48 hours -Stent should be removed as it can affect his initis for further infection -Continue with IV fluids, normal saline at 130 mL/h -Patient continues to have intermittent fevers, continue antibiotics IV Zosyn 3.375 g every 8 hours, will consider switching to cephalosporin if remains afebrile - Blood cultures no growth to date -Tylenol 650 every 6 hours, [place] 5 every 6 hours as needed, toradol 15 IV q6h PRN, and morphine IV 2 q6h PRN, monitor for respiratory depression Imaging: No new imaging Data Review: Urine cultures resulted with E. coli sensitive to cephalosporin and Zosyn DVT prophylaxis: Lovenox Anticipated discharge date: Pending clinical course Anticipated discharge place: home Objective - Vital Signs Vital signs: Vital Signs Temp 98 F 06/13/23 06:57 Pulse 55 L 06/13/23 06:57 Resp 17 06/13/23 06:57 BP 118/67 06/13/23 06:57 Pulse Ox 97 06/13/23 06:57 FiO2 Intake & Output 06/12/23 06/13/23 06/13/23 18:59 06:59 18:59 Output Total 1300 1400 Balance -1300 -1400 Output: Urine 1300 1400 Other: Voiding Method Toilet Toilet Toilet Urinal Urinal # Voids 1 3 - Labs CBC & Chem 7: 06/12/23 11:56 06/12/23 11:56 Labs: Abnormal Lab Results - Last 24 Hours (Table) 06/12/23 Range/Units 11:56 Glucose 105 H (74-99) mg/dL Microbiology - Last 24 Hours (Table) 06/11/23 01:13 Urine Culture - Final Urine,Voided Escherichia coli 06/11/23 04:12 Blood Culture - Preliminary Blood 06/11/23 03:57 Blood Culture - Preliminary Blood
--- NOTE | 2023-06-13 17:01 | CDI ---
Documentation Clarification Form Date: 06/13/2023 02:53:00 PM From: Deanna Burkett Phone: [phone] Admit Date: 06/11/2023 02:24:00 AM Patient Name: Tyrese Churchill Visit Number: [id number] Discharge Date: ATTENTION: The Clinical Documentation Specialists (CDI) and [facility] Coding Staff appreciate your assistance in clarifying documentation. Please respond to the clarification below the line at the bottom and electronically sign. The CDI & [facility] Coding staff will review the response and follow-up if needed. Please note: Queries are made part of the Legal Health Record. If you have any questions, please contact the author of this message via ITS. Dr. Aidan Newton Pyelonephritis is documented in the progress note on 06/11 and patient has ureteral stent placed on 05/29. Additional clarification regarding the etiology of the UTI is requested. History/Risk Factors: "52-year-old male with a PMH of recurrent nephrolithiasis who presents to the emergency room with complaints of right-sided abdominal pain, fever, and chills. Of note, the patient was recently hospitalized from 05/27-05/30 for nephrolithiasis requiring lithotripsy and stent placement. The patient reports that he had been doing well until this morning when he woke up with right-sided abdominal discomfort, rated 5 out of 10, radiating down into the groin. He reports persistent fever and chills throughout the day." - Per H&P on 06/11 Clinical Indicators: "complaining of pain and fevers. However 3 hours later spiked to 103.2. Labs were remarkable for white blood cell count 19 and urinalysis consistent with urinary tract infection." "flank pain" - Per Progress Note on 06/11 "He does have a stent which is attached to string" "CT no residual stones or any additional abnormalities within the kidney. The stent is in the right location" - Per Surgical Note on 06/11 Treatment: "We'll keep stent in place until patient is afebrile for 24-48 hours, at that point the stent can be removed" - Per Surgical Note on 06/11 "Stent should be removed as it can affect his initis for further infection" "IV fluids, normal saline at 130 mL/h" "continue antibiotics IV Zosyn 3.375 g every 8 hours"- Per Progress Note on 06/13 Please clarify the etiology of the Pyelonephritis, if known: [ ] Ureteral stent [ ] UTI not related to stent [ ] Other condition, please specify [ x ] Unable to determine MTDD
[2023-06-14] MEDS: PIPERACILLIN-TAZOBACTAM 3.375 GM in SODIUM CHLORIDE 0.9% 100 ML IVPB SCH (04:02)
[2023-06-14] MEDS: SODIUM CHLORIDE 0.9% 1,000 ML IV SCH ×2 (04:08→08:45)
[2023-06-14] MEDS: HYDROcodone/APAP 5-325MG 1 EACH TAB PO PRN (04:09)
[2023-06-14] MEDS: ENOXAPARIN 40 MG/0.4 ML SYRINGE SQ SCH (08:45)
--- NOTE | 2023-06-14 11:55 | P.PN ---
Subjective Progress Note Date: 06/14/23 52-year-old male with recurrent nephrolithiasis was recently hospitalized from 05/27 through 05/30 with nephrolithiasis with hydronephrosis where he underwent laser with stone basketing and stent placement. On arrival to the ER he was complaining of pain and fevers. However 3 hours later spiked to 103.2. Labs were remarkable for white blood cell count 19 and urinalysis consistent with urinary tract infection. CT abdomen and pelvis showed right ureteral stent with mild R hydronephrosis, nonobstructing left renal stone. He is given a dose of Rocephin and was started on IV fluids. He was admitted for sepsis secondary to pyelonephritis. urology was consulted. Patient seen and examined at bedside. No more episodes of fever. Denies any chest pain, shortness of breath, nausea, vomiting, diarrhea, constipation, or urinary complaints. Vital signs reviewed General: nontoxic, not in acute distress, appears at stated age Cardiovascular: S1S2 reg, no murmur, positive posterior tibial pulse bilateral, Lungs: CTA bilateral, no rhonchi, no rales , no accessory muscle use Abdominal: soft, nontender, nondistended, no guarding, no appreciable organomegaly Ext: no gross muscle atrophy, no edema b/l lower extremities, no contractures Neuro: CN II-XI grossly intact, no focal neuro deficits Psych: Alert, oriented, appropriate affect Assessment/Plan: Pyelonephritis with sepsis Status post recent Uretheral stent -Urology following, will attempt to get urology to remove the stent today -Discontinue IV fluids, encourage oral intake -IV Zosyn being switched back to IV ceftriaxone 2 g every 24 hours - Blood cultures no growth to date -Tylenol 650 every 6 hours, [place] 5 every 6 hours as needed, toradol 15 IV q6h PRN, and morphine IV 2 q6h PRN, monitor for respiratory depression Imaging: No new imaging Data Review: Urine cultures resulted with E. coli sensitive to cephalosporin and Zosyn DVT prophylaxis: Lovenox Anticipated discharge date: Pending clinical course Anticipated discharge place: home Objective - Vital Signs Vital signs: Vital Signs Temp 98.1 F 06/14/23 07:02 Pulse 49 L 06/14/23 07:02 Resp 16 06/14/23 07:02 BP 151/89 06/14/23 07:02 Pulse Ox 95 06/14/23 07:02 FiO2 Intake & Output 06/13/23 06/14/23 06/14/23 18:59 06:59 18:59 Output Total 1400 Balance -1400 Output: Urine 1400 Other: Voiding Method Toilet Toilet Toilet Urinal Urinal Urinal # Voids 4 - Labs CBC & Chem 7: 06/12/23 11:56 06/12/23 11:56 Labs: Microbiology - Last 24 Hours (Table) 06/11/23 04:12 Blood Culture - Preliminary Blood 06/11/23 03:57 Blood Culture - Preliminary Blood 06/11/23 01:13 Urine Culture - Final Urine,Voided Escherichia coli
--- NOTE | 2023-06-14 17:05 | P.PN ---
Subjective Progress Note Date: 06/14/23 No acute overnight events, patient afebrile overnight. urine culture is growing E. coli Objective - Vital Signs Vital signs: Vital Signs Temp 97.7 F 06/14/23 11:14 Pulse 55 L 06/14/23 11:14 Resp 16 06/14/23 11:14 BP 148/93 06/14/23 11:14 Pulse Ox 97 06/14/23 11:14 FiO2 Intake & Output 06/13/23 06/14/23 06/14/23 18:59 06:59 18:59 Output Total 1400 400 Balance -1400 -400 Output: Urine 1400 400 Other: Voiding Method Toilet Toilet Toilet Urinal Urinal Urinal # Voids 4 - Labs CBC & Chem 7: 06/12/23 11:56 06/12/23 11:56 Labs: Microbiology - Last 24 Hours (Table) 06/11/23 04:12 Blood Culture - Preliminary Blood 06/11/23 03:57 Blood Culture - Preliminary Blood Assessment and Plan Assessment: 52-year-old male with sepsis post right-sided ureteroscopy with holmium laser on May 29. Patient does have a stent in place. Patient admitted with sepsis secondary to UTI. He's been afebrile for more than 24 hours, urine culture is growing E. coli -Stent was removed at bedside today, he is okay for discharge from urology standpoint -F/u with Urology PRN
[2023-06-15 02:31] VITALS: TEMP 97.8
[2023-06-15 07:50] VITALS: BP 152/90; PULSE 44; RESP 17
[2023-06-15] MEDS: ENOXAPARIN 40 MG/0.4 ML SYRINGE SQ SCH (08:52)
--- NOTE | 2023-06-15 11:26 | P.DS ---
Providers Date of admission: 06/11/23 02:24 Expected date of discharge: 06/15/23 Attending physician: Pramod Torres MD Consults: 06/11/23 02:22 Consult Physician Routine Consulting Provider: Fabian Jean Consult Reason/Comments: UTI, Stent Do you want consulting provider notified?: Yes Primary care physician: Michael Mcintyre [facility] Course: Discharge Diagnosis: Sepsis secondary to complicated E coli UTI Status post recent ureteral stent Hospital Course: 52-year-old male with recurrent nephrolithiasis was recently hospitalized from 05/27 through 05/30 with nephrolithiasis with hydronephrosis where he underwent laser with stone basketing and stent placement. On arrival to the ER he was complaining of pain and fevers. However 3 hours later spiked to 103.2. Labs were remarkable for white blood cell count 19 and urinalysis consistent with urinary tract infection. CT abdomen and pelvis showed right ureteral stent with mild R hydronephrosis, nonobstructing left renal stone. He was started on Rocephin and was started on IV fluids. He was admitted for sepsis secondary to UTI. Urology was consulted. Continue to have fevers. Antibiotics broadened to Zosyn. Urine culture positive for E. coli sensitive to cephalosporins and Zosyn. Ureteral stent now removed. Patient has been afebrile. Being discharged on oral antibiotics. Patient seen and examined at bedside. Vital signs reviewed and stable. General: nontoxic, no distress, appears at stated age Derm: warm, dry Head: atraumatic, normocephalic, symmetric Eyes: EOMI, no lid lag, anicteric sclera Mouth: no lip lesion, mucus membranes moist Cardiovascular: S1S2 reg, no murmur Lungs: CTA bilateral, no rhonchi, no rales , no accessory muscle use Abdominal: soft, nontender to palpation, no guarding, no appreciable organomegaly Ext: no gross muscle atrophy, no edema, no contractures Neuro: CN II-XI grossly intact, no focal neuro deficits Psych: Alert, oriented, appropriate affect A total of 33 minutes of time were spent preparing this complex discharge summary. Patient was discharged on at 0915. Patient Condition at Discharge: Stable Plan - Discharge Summary New Discharge Prescriptions: New Cefdinir 300 mg PO Q12HR #20 cap HYDROcodone/APAP 5-325MG [[place] 5-325] 1 each PO Q6HR PRN #7 tab PRN Reason: Moderate Pain (Scale 4 To 6) Discharge Medication List Cefdinir 300 mg PO Q12HR #20 cap 06/15/23 [Rx] HYDROcodone/APAP 5-325MG [[place] 5-325] 1 each PO Q6HR PRN #7 tab 06/15/23 [Rx] Follow up Appointment(s)/Referral(s): Aly Howell MD [STAFF PHYSICIAN] - 06/22/23 9:40 am Michael Gong MD [Primary Care Provider] - 1-2 days (If you would like to see this doctor call office and establish care there.) Patient Instructions/Handouts: Hydrocodone/Acetaminophen (By mouth), Cefdinir (By mouth), Urinary Tract Infection in Men (DC) Activity/Diet/Wound Care/Special Instructions: Please see your urologist and PCP. Discharge Disposition: HOME SELF-CARE
== END 2023-06-15 11:11 | disposition home or self-care (01) | DRG 872 ==
LOC: EC 00:51 → 4SSUR 02:24 → 5NMEDONC 04:19
PROVIDERS: ADMIT Internal Medicine; ATTEND Internal Medicine
DX: A41.51 Sepsis due to Escherichia coli [E. coli] (principal); N39.0 Urinary tract infection, site not specified; N13.6 Pyonephrosis; N20.2 Calculus of kidney with calculus of ureter; F17.210 Nicotine dependence, cigarettes, uncomplicated; Z86.16 Personal history of COVID-19; Z28.310 Unvaccinated for COVID-19; Z28.21 Immunization not carried out because of patient refusal; R00.1 Bradycardia, unspecified; I45.10 Unspecified right bundle-branch block; Z87.442 Personal history of urinary calculi; Z96.0 Presence of urogenital implants
CPT/HCPCS: 36415; 74177; 80048; 80053; 81001; 83605; 85025; 87040; 87077; 87086; 87186; 87636; 96361; 96365; 96375; 96376; 99285

== ENCOUNTER 2023-10-12 10:23 | Emergency (ER) | payer BC ==
--- NOTE | 2023-10-12 10:37 | ED ---
Wound/Laceration HPI - General Chief Complaint: Wound/Laceration Stated Complaint: Hand Lac Time Seen by Provider: 10/12/23 10:33 Source: patient, RN notes reviewed Mode of arrival: ambulatory Limitations: no limitations - History of Present Illness Initial Comments: This is a 53-year-old male presents the emergency department chief complaint of a laceration to his right hand between his thumb a long plane mower. States that this occurred on Sunday. He has cleaned the area at home and kept the area wrapped but is concerned due to to the wound not closing itself. Patient is unaware when his last tetanus vaccine was he denies current use of blood thinners. - Related Data Previous Rx's Medication Instructions Recorded Cefdinir 300 mg PO Q12HR #20 cap 06/15/23 HYDROcodone/APAP 5-325MG [[place] 1 each PO Q6HR PRN #7 tab 06/15/23 5-325] Cephalexin [Keflex] 500 mg PO Q6HR #40 cap 10/12/23 Allergies Allergy/AdvReac Type Severity Reaction Status Date / Time No Known Allergies Allergy Verified 10/12/23 10:26 Review of Systems ROS Statement: Those systems with pertinent positive or pertinent negative responses have been documented in the HPI. ROS Other: All systems not noted in ROS Statement are negative. Past Medical History Past Medical History: No Reported History Additional Past Medical History / Comment(s): kidney stones History of Any Multi-Drug Resistant Organisms: None Reported Past Surgical History: No Surgical Hx Reported Additional Past Surgical History / Comment(s): Stent placement-Lithotripsy 05/27/2023 Past Anesthesia/Blood Transfusion Reactions: No Reported Reaction Past Psychological History: No Psychological Hx Reported Smoking Status: Light tobacco smoker Past Alcohol Use History: None Reported Past Drug Use History: None Reported General Exam Limitations: no limitations General appearance: alert, in no apparent distress Head exam: Present: atraumatic, normocephalic, normal inspection Eye exam: Present: normal appearance, PERRL, EOMI. Absent: scleral icterus, conjunctival injection, periorbital swelling ENT exam: Present: normal exam, mucous membranes moist Neck exam: Present: normal inspection. Absent: tenderness, meningismus, lymphadenopathy Respiratory exam: Present: normal lung sounds bilaterally. Absent: respiratory distress, wheezes, rales, rhonchi, stridor Cardiovascular Exam: Present: regular rate, normal rhythm, normal heart sounds. Absent: systolic murmur, diastolic murmur, rubs, gallop, clicks GI/Abdominal exam: Present: soft, normal bowel sounds. Absent: distended, tenderness, guarding, rebound, rigid Right Hand Wrist exam: Present: laceration (first digit webbing laceration measuring 2 cm) Neuro motor exam: Present: wrist extension intact, thumb opposition intact, thumb IP flexion intact, thumb adduction intact Vascular: Present: normal capillary refill, radial pulse (2+). Absent: vascular compromise Back exam: Present: normal inspection Neurological exam: Present: alert, oriented X3, CN II-XII intact Psychiatric exam: Present: normal affect, normal mood Skin exam: Present: warm, dry, intact, normal color, other (see above). Absent: rash Course Vital Signs 10/12/23 10/12/23 10:24 11:11 Temperature 97.9 F 98 F Pulse Rate 61 63 Respiratory 18 18 Rate Blood Pressure 179/103 158/87 O2 Sat by Pulse 99 99 Oximetry Medical Decision Making - Medical Decision Making Was pt. sent in by a medical professional or institution (, PA, PEDIATRIC CLINICAL NURSE SPECIALIST, urgent care, hospital, or fpc...) When possible be specific @ -No Did you speak to anyone other than the patient for history (EMS, parent, family, police, friend...)? What history was obtained from this source @ -No Did you review nursing and triage notes (agree or disagree)? Why? @ -I reviewed and agree with nursing and triage notes Were old charts reviewed (outside hosp., previous admission, EMS record, old EKG, old radiological studies, urgent care reports/EKG's, fpc records)? Report findings @ -No old charts were reviewed Differential Diagnosis (chest pain, altered mental status, abdominal pain women, abdominal pain men, vaginal bleeding, weakness, fever, dyspnea, syncope, headache, dizziness, GI bleed, back pain, seizure, CVA, palpatations, mental health, musculoskeletal)? @ -Laceration EKG interpreted by me (3pts min.). @ -None X-rays interpreted by me (1pt min.). @ -None done CT interpreted by me (1pt min.). @ -None done U/S interpreted by me (1pt. min.). @ -None done What testing was considered but not performed or refused? (CT, X-rays, U/S, labs)? Why? @ -None What meds were considered but not given or refused? Why? @ -None Did you discuss the management of the patient with other professionals (professionals i.e. , PA, PEDIATRIC CLINICAL NURSE SPECIALIST, lab, RT, psych nurse, social welfare administrator, home appraiser, teacher, precinct commanding officer, manager case)? Give summary @ -No Was smoking cessation discussed for >3mins.? @ -No Was critical care preformed (if so, how long)? @ -No Were there social determinants of health that impacted care today? How? (Homelessness, low income, unemployed, alcoholism, drug addiction, transportation, low edu. Level, literacy, decrease access to med. care, fci, rehab)? @ -No Was there de-escalation of care discussed even if they declined (Discuss DNR or withdrawal of care, Hospice)? DNR status @ -No What co-morbidities impacted this encounter? (DM, HTN, Smoking, COPD, CAD, Cancer, CVA, ARF, Chemo, Hep., AIDS, mental health diagnosis, sleep apnea, morbid obesity)? @ -None Was patient admitted / discharged? Hospital course, mention meds given and route, prescriptions, significant lab abnormalities, going to OR and other pertinent info. @ -Discharge. 53-year-old male with complaint of a laceration to his right hand. On examination patient noted to have roughly 2 cm laceration between the first and second digit and swelling. Since this event occurred on Sunday this wound is not amendable to suture repair. Topical bacitracin was applied to the wound Steri-Strips in place in addition to wrapping. Educate the patient on keeping his 80 ducted to encourage wound healing. Patient will also be discharged home with oral antibiotics for coverage of potential infection. Provided with tetanus vaccination in the emergency department. Recommend patient follows up with his primary care provider next week for further evaluation. This case is discussed with Dr. Noriega Undiagnosed new problem with uncertain prognosis? @ -No Drug Therapy requiring intensive monitoring for toxicity (Heparin, Nitro, Insulin, Cardizem)? @ -No Were any procedures done? @ -No Diagnosis/symptom? @ -Laceration Acute, or Chronic, or Acute on Chronic? @ -Acute Uncomplicated (without systemic symptoms) or Complicated (systemic symptoms)? @ -uncomplicted Side effects of treatment? @ -No Exacerbation, Progression, or Severe Exacerbation? @ -No Poses a threat to life or bodily function? How? (Chest pain, [place], [place], pneumonia, PE, COPD, DKA, ARF, appy, cholecystitis, CVA, Diverticulitis, Homicidal, Suicidal, threat to staff... and all critical care pts) @ -No Disposition Clinical Impression: Laceration Narrative: Please return to the Emergency Department if symptoms worsen or any other concerns. complete Full course of antibiotics as prescribed. Disposition: HOME SELF-CARE Condition: Good Instructions (If sedation given, give patient instructions): Laceration (ED) Prescriptions: Cephalexin [Keflex] 500 mg PO Q6HR #40 cap Is patient prescribed a controlled substance at d/c from ED?: No Referrals: Michael Gong MD [Primary Care Provider] - 1-2 days Time of Disposition: 10:55
[2023-10-12] MEDS: DIPH,PERTUS(ACELL)TETVAC-LF 0.5 ML VIAL IM ONE (10:43)
[2023-10-12] MEDS: BACITRACIN OINT 1 EACH PACKET TOPICAL ONE (10:57)
[2023-10-12 11:08] VITALS: RESP 18
[2023-10-12 11:51] VITALS: BP 158/87; PULSE 63; TEMP 98
== END 2023-10-12 11:13 | disposition home or self-care (01) ==
LOC: EC 10:23
DX: S61.411A Laceration without foreign body of right hand, initial encounter (principal); F17.200 Nicotine dependence, unspecified, uncomplicated; W26.8XXA Contact with other sharp object(s), not elsewhere classified, initial encounter; Z23 Encounter for immunization
CPT/HCPCS: 10120; 90471; 90715; 99282